=== PATIENT | female | born 1955 | race Caucasian/White ===

== ENCOUNTER 2017-02-13 14:04 | Day surgery (SDC) | payer OTHER ==
[~2017-02-13 14:04] MED LIST: HYDR-3534 PO; LISI-360 PO; NORC7.5T PO; RIVA10 PO; WALKER STANDARD; Z.0.WHEELELR
[2017-02-13 14:31] VITALS: BP 131/83; PULSE 100; RESP 20; TEMP 97.6; O2SAT 100
[2017-02-13] MEDS ORDERED: HYDR-3580 PO (14:41)
--- NOTE | 2017-02-13 15:19 | PD.RAD ---
Radiology Post PICC Prog Note Pre Procedure Diagnosis: (1) Anal cancer Post Procedure Diagnosis: (1) Anal cancer Procedure: Left PICC line placement Procedure Date: Feb 13, 2017 Supervising Radiologist Gregory Hawkins Device Side: Left Armenian: 4 single lumen cm: 41 Catheter: Power PICC Plan of Activity Patient to Unit: ROPU Patient Condition: Good PICC line can be used immediately Gregory Hawkins MD Feb 13, 2017 15:19
[2017-02-13 15:30] VITALS: BP 135/80; PULSE 98; RESP 20; O2SAT 98
[2017-02-13] MEDS ORDERED: SODIUM CHLORIDE 0.9% FLUSH 10 ML FLUSH IVF PRN ×2 (15:30)
--- NOTE | 2017-02-13 15:44 | RADRPT ---
EXAM DATE/TIME: 02/13/2017 15:12 CORRECTION Corrected on: February 17, 2017; [facility] COMPARISON: No previous studies available for comparison. INDICATIONS : Patient is in need of placement of a left sided PICC line for venous access. MEDICAL HISTORY : History of squamous cell anal carcinoma, uterine cancer, ulcerated rectal mass, AVN of left hip, GERD , hypercholesteremia. SURGICAL HISTORY : History of hysterectomy, flex sigmoidoscopy, small bowel biopsy, stomach biopsy, anal verserectum bio psy, right ankle surgery, breast augmentation. ENCOUNTER: Initial ACUITY: 1 month PAIN SCORE: 0/10 FLUORO TIME: minutes IMAGE SERIES: 1 ACCESS: Left basilic vein MEDICATION(S): 1.) 200 units Heparin catheter lock DEVICE(S): 1.) 4 Chinese single lumen 41 cm Xcela Power PICC PROCEDURE : 1. Ultrasound guidance for venous catheterization. 2. Fluoroscopic guidance. 3. Ultrasound & fluoroscopic guided central venous Power PICC line placement. The risks, benefits and alternatives to the procedure were explained and verbal and written consent w as obtained. The site was prepped in sterile fashion. Full sterile technique was used, including ca p, mask, sterile gloves and gown and a large sterile sheet. Hand hygiene and 2% chlorhexidine prep w as utilized per protocol for cutaneous antisepsis with appropriate dry time for site. The skin and s ubcutaneous tissues were infiltrated with local anesthetic solution. Under direct ultrasound guidance, a suitable vein was accessed and a measuring guidewire was introduc ed and positioned in the central venous system. The ultrasound images depicting access guidance were saved and stored to PACS for permanent record. A Power Injectable PICC line was cut to prescribed length and introduced, positioned with tip at the cavoatrial junction level. The line was flushed and secured per protocol. CONCLUSION: 1. Uncomplicated central venous Power PICC line placement. 2. The PICC line can be used immediately. Gregory Hawkins MD on February 13, 2017 at 15:42 Board Certified Radiologist. This report was verified electronically. Gregory Hawkins MD on February 17, 2017 at 16:13 Board Certified Radiologist. This report was verified electronically.
[2017-02-14] MEDS ORDERED: SODIUM CHLORIDE 0.9% FLUSH 10 ML FLUSH IVF SCH (09:00)
== END 2017-02-13 16:04 | disposition home or self-care (01) ==
LOC: HROP 14:04 → HRIP 14:07 → HROP 16:04
PROVIDERS: ATTEND Internal Medicine Hematology & Oncology
DX: Z45.2 Encounter for adjustment and management of vascular access device (principal); C21.0 Malignant neoplasm of anus, unspecified; K21.9 Gastro-esophageal reflux disease without esophagitis; E78.00 Pure hypercholesterolemia, unspecified
CPT/HCPCS: 36569; 76937; 77001; C1751; J1642

== ENCOUNTER 2017-02-17 13:05 | Day surgery (SDC) | payer OTHER ==
[~2017-02-17 13:05] MED LIST changes: -HYDR-3534 PO; +HYDR-3580 PO; -LISI-360 PO; -NORC7.5T PO; -RIVA10 PO; -WALKER STANDARD; -Z.0.WHEELELR
[2017-02-17 13:36] VITALS: BP 159/86; PULSE 88; RESP 20; TEMP 98.3; O2SAT 99
[2017-02-17 15:40] VITALS: BP 161/90; PULSE 87; RESP 20; O2SAT 100
[2017-02-17] MEDS ORDERED: SODIUM CHLORIDE 0.9% FLUSH 10 ML FLUSH IVF PRN ×2 (15:45)
--- NOTE | 2017-02-17 15:46 | PD.RAD ---
Post Procedure Progress Note Pre Procedure Diagnosis: (1) Anal cancer Post Procedure Diagnosis: (1) Anal cancer (2) PICC line damaged Procedure Date: Feb 17, 2017 Supervising Radiologist: Rajendra Aldana Proceduralist/Assist: RT Kaelyn(R)() Anesthesia: Local Plan of Activity Patient to Unit: ROPU Patient Condition: Good See PACS Report for procedural detail/treatment PICC Device Left PICC line replacement (Existing catheter leaking) single lumen Yakut: 4 PICC Line Length (cm): 41 Catheter: Power PICC PICC line can be used immediately Rajendra Aldana MD Feb 17, 2017 15:46
--- NOTE | 2017-02-17 19:46 | RADRPT ---
EXAM DATE/TIME: 02/17/2017 15:26 [facility] COMPARISON: No previous studies available for comparison. INDICATIONS : Patient with a history of rectal cancer. MEDICAL HISTORY : squamous cell anal carcinoma, uterine cancer, ulcerated rectal mass, AVN of left hip, GERD, hypercholesteremia. SURGICAL HISTORY : hysterectomy, flex sigmoidoscopy, small bowel biopsy, stomach biopsy, anal verserectum biopsy, right ankle surgery, breast augmentation. ENCOUNTER: Subsequent ACUITY: 2 months PAIN SCORE: 7/10 LOCATION: Left hip FLUORO TIME: 0.18 minutes IMAGE SERIES: 1 ACCESS: Left basilic vein DEVICE(S): 1.) 4 Czech single lumen 41 cm Power PICC PROCEDURE : 1. Fluoroscopic guidance. 2. Fluoroscopic guided central venous Power PICC line replacement. The risks, benefits and alternatives to the procedure were explained and verbal and written consent w as obtained. The arm was prepped in sterile fashion. Full sterile technique was used, including cap , mask, sterile gloves and gown and a large sterile sheet. Hand hygiene and 2% chlorhexidine prep wa s utilized per protocol for cutaneous antisepsis with appropriate dry time for site. The skin and sarah bcutaneous tissues were infiltrated with local anesthetic solution. Under direct fluoroscopic guidance the previously placed PICC line was removed over a guidewire and a fresh Power Injectable PICC line was cut to prescribed length and positioned with tip at the cavoatr ial junction level. The line was flushed and secured per protocol. CONCLUSION: 1. Uncomplicated central venous Power PICC line replacement. 2. The PICC line can be used immediately. Rajednra Aldana MD on February 17, 2017 at 19:44 Board Certified Radiologist. This report was verified electronically.
[2017-02-18] MEDS ORDERED: SODIUM CHLORIDE 0.9% FLUSH 10 ML FLUSH IVF SCH (09:00)
== END 2017-02-17 15:50 | disposition home or self-care (01) ==
LOC: HROP 13:05 → HRIP 13:06 → HROP 15:50
PROVIDERS: ATTEND Internal Medicine Hematology & Oncology
DX: Z45.2 Encounter for adjustment and management of vascular access device (principal); C21.0 Malignant neoplasm of anus, unspecified; E78.00 Pure hypercholesterolemia, unspecified; K21.9 Gastro-esophageal reflux disease without esophagitis; Z85.42 Personal history of malignant neoplasm of other parts of uterus
CPT/HCPCS: 36584; 77001; C1751; J1642

== ENCOUNTER 2017-04-06 16:00 | Observation (INO) | payer OTHER ==
[~2017-04-06] VITALS: Ht 165.1 cm; Wt 55.0 kg
[2017-04-06 16:02] VITALS: BP 133/75; PULSE 125; RESP 15; TEMP 99.3
[2017-04-06] MEDS ORDERED: NALOXONE HCL 0.4 MG/ML AMP IV PRN (16:30)
[2017-04-06] MEDS ORDERED: ACETAMINOPHEN/HYDROcodone 325 MG/5 MG TAB PO PRN (16:30)
[2017-04-06] MEDS ORDERED: SODIUM CHLORIDE 0.9% FLUSH 10 ML FLUSH IV FLUSH PRN (16:30)
[2017-04-06] MEDS ORDERED: TEMAZEPAM 15 MG CAP PO PRN (16:30)
[2017-04-06] MEDS ORDERED: ONDANSETRON HCL 4 MG/2 ML VIAL IVP PRN (16:30)
[2017-04-06] MEDS ORDERED: MAGNESIUM HYDROXIDE SUSP 30 ML CUP PO PRN (16:30)
--- NOTE | 2017-04-06 16:41 | HHI.HP ---
HPI Service [facility] Hospitalists Primary Care Physician Harris Quintana M.D. Admission Diagnosis Anemia Chief Complaint: Weakness Travel History International Travel<30 Days: No Contact w/Intl Traveler <30 Da: No Traveled to Known Affected Are: No History of Present Illness Mrs. Valadez is a pleasant 61 y/o female with anal cancer diagnosed in 12/2016 undergoing XRT and has had chemo with Dr. Orozco. Pt was sent to the ED by her Oncologist for a significant anemia. Pts labs with Hgb 5.6/Hct 17.5 on 04/06/17. She complains of generalized weakness, fatigue and some exertional SOB. Pt has also had anal pain since starting the XRT and has been using topical lidocaine without much relief. She reports chronic diarrhea alternating with constipation, but denies any obvious rectal bleeding or melena. She is being admitted for blood transfusion and for observation overnight. Review of Systems Constitutional: COMPLAINS OF: Fatigue, Change in appetite, DENIES: Fever, Chills, Dizziness Eyes: DENIES: Vision loss Ears, nose, mouth, throat: DENIES: Hearing loss Respiratory: DENIES: Cough Cardiovascular: COMPLAINS OF: Dyspnea on Exertion, DENIES: Chest pain, Palpitations Gastrointestinal: COMPLAINS OF: Constipation, Diarrhea, See HPI, DENIES: Abdominal pain, Black stools, Bloody stools, BRB per rectum, Nausea Genitourinary: DENIES: Hematuria Integumentary: DENIES: Rash Neurologic: DENIES: Headache Psychiatric: DENIES: Confusion Past Family Social History Past Medical History Anal cancer, SCC, diagnosed in 12/2016, started on XRT and chemo with Mitomycin and 5-FU on 02/16/17. Pt follows with Dr. Orozco and Dr. Estrada GERD Hx of H. pylori gastritis Hyperlipidemia Hx of uterine cancer Past Surgical History EGD/Colonoscopy 01/06/[address] Hooks --> gastritis, esophagitis, duodenitis, and bleeding ulcerated mass at anal verge Right ankle surgery in 2015 Partial hysterectomy in 1996 Bilateral breast augmentation Reported Medications -AZO PRN -Fentanyl patch 2000mcg Q72H, last placed on 04/05/17 -Hydromorphone 2mg (1-2 tablets) Q4H PRN Allergies: Coded Allergies: No Known Allergies (Unverified , 04/06/17) Family History Noncontributory Social History Denies any alcohol, tobacco or illicit drug use Physical Exam Vital Signs Vital Signs Date Time Temp Pulse Resp B/P Pulse Ox O2 Delivery O2 Flow Rate FiO2 04/06/17 16:02 99.3 125 15 133/75 Physical Exam GENERAL: This is a well-nourished, well-developed patient, in no apparent distress. HEENT: Atraumatic. Normocephalic. No temporal or scalp tenderness. Pale conjunctiva. Airway patent. NECK: Trachea midline, supple, nontender. CARDIO: Regular RESP: CTA bilaterally. No wheezes, rales, or rhonchi. ABD: +BS, soft, nondistended. EXT: Extremities without clubbing, cyanosis, or edema. NEURO: Awake and alert. Motor and sensory grossly within normal limits. Normal speech. Septic Shock Reassessment Heart: Regular rate and rhythm Lungs: Clear Skin: Warm Assessment and Plan Problem List: (1) Severe anemia Status: Acute Plan: - Pt is a 61 y/o WF with recently diagnosed SCC of the anus, who was started on XRT and chemo with Mitomycin and 5-FU on 02/16/17. Pt follows with Dr. Orozco and Dr. Estrada - She has not had any noted active bleeding but has had progressive weakness and fatigue. - Pts labs on 04/06/17 noted a significant drop in her H/H to 5.6/17.5, MCV 104.4 - Pt was sent to the hospital for admission and transfusion with PRBCs. - Pt is being directly admitted for observation and transfusion of 2 units PRBCs - Repeat labs in AM to determine if further transfusion is necessary - The case was discussed between Dr. Sigala and Dr. Orozco - Continue home meds - Pain control PRN - Diet as tolerated - Pt received IVF outpt today - Zofran PRN (2) Anal cancer Status: Chronic Plan: - See above. Assessment and Plan Patient examined. Assessment and plan formulated with Iris Mccann PA-C. I agree with the above. Case d/w Dr. Orozco. No availability [facility] for transfusion at this time. Pt admitted for transfusion d/t critically low Hg. Pt c/o increased fatigue. No chest pain but exertional SOB. Iris Mccann Apr 06, 2017 16:41 Ludin Sigala DO Apr 07, 2017 08:35
[2017-04-06] MEDS ORDERED: SODIUM CHLOR 0.9% 250 ML INJ 250 ML IV ONE (16:45)
[2017-04-06] MEDS ORDERED: FUROSEMIDE 20 MG/2 ML VIAL IV ONE (16:45)
[2017-04-06] MEDS ORDERED: HYDROmorphone HCL 2 MG TAB PO PRN (16:45)
[2017-04-06] MEDS ORDERED: PHENAZOPYRIDINE HCL 100 MG TAB PO PRN (17:00)
[2017-04-06] MEDS: ACETAMINOPHEN 325 MG TAB PO PRN (17:37)
[2017-04-06 18:00] VITALS: BP 124/74; PULSE 106; RESP 20; TEMP 100.4
[2017-04-06] MEDS ORDERED: DICYCLOMINE HCL 20 MG TAB PO SCH (18:00)
[2017-04-06] MEDS: HYDROmorphone HCL 4 MG TAB PO PRN (18:15)
[2017-04-06] MEDS ORDERED: LIDO4CRE5 RECTAL (19:13)
[2017-04-06] MEDS ORDERED: AZO-450T (19:13)
[2017-04-06] MEDS ORDERED: HYDR4TAB PO (19:13)
[2017-04-06] MEDS ORDERED: FENT100D T-DERMAL (19:13)
[2017-04-06] MEDS ORDERED: [UNRECOGNIZED DRUG - OTHER] EXTERNAL (19:13)
[2017-04-06 20:00] VITALS: BP 103/59; PULSE 100; RESP 18; TEMP 97.7
[2017-04-06 20:07] VITALS: TEMP 98.4
--- NOTE | 2017-04-06 22:00 | RADRPT ---
EXAM DATE/TIME: 04/06/2017 21:18 [facility] COMPARISON: No previous studies available for comparison. INDICATIONS : Cough. MEDICAL HISTORY : Carcinoma, rectal. SURGICAL HISTORY : None. ENCOUNTER: Initial ACUITY: 1 day PAIN SCORE: 0/10 LOCATION: Bilateral chest FINDINGS: A single view of the chest demonstrates the lungs to be symmetrically aerated without evidence of mas s, infiltrate or effusion. The cardiomediastinal contours are unremarkable. Osseous structures are intact. CONCLUSION: No evidence of acute cardiopulmonary disease. Lavell Dubose MD on April 06, 2017 at 21:58 Board Certified Radiologist. This report was verified electronically.
[2017-04-06] MEDS: SODIUM CHLORIDE 0.9% FLUSH 10 ML FLUSH IV FLUSH SCH (22:23)
[2017-04-06] MEDS ORDERED: diphenhydrAMINE HCL 25 MG CAP PO PRN (23:00)
[2017-04-06] MEDS ORDERED: ACETAMINOPHEN 325 MG TAB PO PRN (23:00)
[2017-04-06 23:40] VITALS: BP 101/61; PULSE 92; RESP 16; TEMP 99; O2SAT 93
[2017-04-06 23:50] VITALS: BP 101/61; PULSE 92; RESP 16; TEMP 99; O2SAT 93
[2017-04-07] VITALS (8 sets, daily range): BP systolic 94–138; BP diastolic 55–90; PULSE 80–96; RESP 16–18; TEMP 96.3–100.2; O2SAT 93–100
[2017-04-07] MEDS ORDERED: FUROSEMIDE 20 MG/2 ML VIAL IV ONE (03:00)
[2017-04-07] MEDS: HYDROmorphone HCL 4 MG TAB PO PRN ×4 (03:20→16:44)
[2017-04-07] MEDS: ACETAMINOPHEN 325 MG TAB PO PRN (08:29)
--- NOTE | 2017-04-07 08:48 | HHI.PR ---
Subjective Remarks No new complaints. Pt denies chest pain or SOB, but has not been ambulating yet this AM. Pt with occasional low grade fever. Pt had episode of low grade fever this AM, associated with transfusion? Pt denies dysuria or cough. Objective Vitals Vital Signs Date Time Temp Pulse Resp B/P Pulse Ox O2 Delivery O2 Flow Rate FiO2 04/07/17 06:35 98.2 89 16 103/59 95 04/07/17 03:55 98.1 88 16 118/71 100 04/07/17 03:32 97.5 90 16 138/81 98 04/07/17 02:41 96.3 84 16 112/70 98 04/07/17 00:11 98.5 89 16 94/55 95 04/06/17 23:50 99.0 92 16 101/61 93 04/06/17 23:40 99.0 92 16 101/61 93 04/06/17 20:07 98.4 04/06/17 20:00 97.7 100 18 103/59 04/06/17 18:00 100.4 106 20 124/74 04/06/17 16:02 99.3 125 15 133/75 Imaging Last Impressions Chest X-Ray 04/06/17 1622 Signed Impressions: Service Date/Time: Thursday, April 06, 2017 21:18 - CONCLUSION: No evidence of acute cardiopulmonary disease. Lavell Dubose MD Objective Remarks GENERAL: This is a well-nourished, well-developed patient, in no apparent distress. CARDIOVASCULAR: Regular rate and rhythm without murmurs, gallops, or rubs. RESPIRATORY: Clear to auscultation. Breath sounds equal bilaterally. No wheezes , rales, or rhonchi. GASTROINTESTINAL: Abdomen soft, non-tender, nondistended. Normal active bowel sounds MUSCULOSKELETAL: Extremities without clubbing, cyanosis, or edema. NEURO: Alert & Oriented x4 to person, place, time, situation. Moves all ext x4 A/P Problem List: (1) Severe anemia Status: Acute Plan: - Pt is a 61 y/o WF with recently diagnosed SCC of the anus, who was started on XRT and chemo with Mitomycin and 5-FU on 02/16/17. Pt follows with Dr. Orozco and Dr. Estrada - She has not had any noted active bleeding but has had progressive weakness and fatigue. - Pts labs on 04/06/17 noted a significant drop in her H/H to 5.6/17.5, MCV 104.4 - Pt was sent to the hospital for admission and transfusion with PRBCs, no availability at [facility] - Pt received transfusion of 2 units PRBCs - await AM labs, pt may require additional transfusion - Continue home meds - Pain control PRN - Zofran PRN (2) Anal cancer Status: Chronic Plan: - See above. (3) Fever, low grade Status: Acute Plan: - possibly d/t transfusion - CXR (04/06/17) --> NO infiltrate - obtain UA/Cx - observe Ludin Sigala DO Apr 07, 2017 08:48
[2017-04-07] MEDS ORDERED: PANTOPRAZOLE SOD 20 MG DELAYED RELEASE TAB PO SCH (09:00)
[2017-04-07] MEDS ORDERED: TAMSULOSIN HCL 0.4 MG CAP PO SCH (09:00)
[2017-04-07] MEDS ORDERED: DEXAMETHASONE 4 MG TAB PO SCH (09:00)
[2017-04-07 09:40] LABS: BICARBONATE 27.6 MEQ/L (21.0-32.0); MAGNESIUM 1.8 MG/DL (1.5-2.5); POTASSIUM 3.3 MEQ/L (3.5-5.1)
[2017-04-07 09:54] LABS: HEMATOCRIT 28.1 % (35.0-46.0); MEAN CELL VOLUME 95.7 FL (80.0-100.0); MEAN CORPUSCULAR HGB CONC 34.5 % (32.0-36.0); PLATELET COUNT 192 TH/MM3 (150-450); RED BLOOD COUNT 2.94 MIL/MM3 (4.00-5.30); RED CELL DISTRIBUTION WIDTH 22.8 % (11.6-17.2); WHITE BLOOD COUNT 3.4 TH/MM3 (4.0-11.0)
[2017-04-07 09:59] LABS: HEMO FLAGS AUTO DIFF
[2017-04-07 10:46] LABS: BANDS 13 % (0-6); EOSINOPHILS 4 % (0-4); NEUTROPHIL # MANUAL DIFF 2.1 TH/MM3 (1.8-7.7); POLYS (SEG NEUTROPHILS) 50 % (16-70); WBC DIFF SAMPLE 100
[2017-04-07 10:47] LABS: OVALOCYTES 1+ (NORMAL)
[2017-04-07 10:48] LABS: SCAN/DIFF FINAL DIFF MANUAL
[2017-04-07] MEDS: SODIUM CHLORIDE 0.9% FLUSH 10 ML FLUSH IV FLUSH SCH (12:32)
[2017-04-07 15:04] LABS: BLOOD, URINE NEG (NEG); GLUCOSE,URINE NEG (NEG); KETONE, URINE NEG (NEG); MUCUS URINE FEW /lpf (OCC); NITRITE,URINE NEG (NEG); URINE COLOR YELLOW (YELLW/STRAW)
[2017-04-07 15:05] LABS: COMMENT (UR) CULT NOT INDICATED; CULTURE IF INDICATED CULT NOT INDICATED
[2017-04-07 16:54] LABS: BASOPHIL % 0.4 % (0.0-2.0); EOSINOPHIL # 0.2 TH/MM3 (0-0.4); EOSINOPHIL % 5.5 % (0.0-4.0); HEMATOCRIT 29.7 % (35.0-46.0); HEMO FLAGS DIFF FINAL; LYMPH % 18.1 % (9.0-44.0); LYMPHOCYTE # 0.6 TH/MM3 (1.0-4.8); MEAN CELL VOLUME 95.9 FL (80.0-100.0); MEAN CORPUSCULAR HEMOGLOBIN 31.9 PG (27.0-34.0); MEAN CORPUSCULAR HGB CONC 33.2 % (32.0-36.0); MONO % 19.2 % (0.0-8.0); NEUT % 56.8 % (16.0-70.0); PLATELET COUNT 202 TH/MM3 (150-450); RED BLOOD COUNT 3.09 MIL/MM3 (4.00-5.30); RED CELL DISTRIBUTION WIDTH 22.9 % (11.6-17.2); WHITE BLOOD COUNT 3.5 TH/MM3 (4.0-11.0)
[2017-04-07] MEDS ORDERED: POTASSIUM CHLORIDE 20 MEQ CONTROLLED RELEASE TAB PO ONE (18:15)
--- NOTE | 2017-04-07 21:53 | EKG ---
Date Performed: 04/06/2017 Time Performed: 21:32:52 PTAGE: 61 years EKG: SINUS TACHYCARDIA Since previous tracing, no significant change noted ABNORMAL RHYTHM ECG PREVIOUS TRACING : 02/16/2017 11.47 DOCTOR: Pierre Buckner Interpretating Date/Time 04/07/2017 21:51:24
[2017-04-08] MEDS ORDERED: fentaNYL 100 MCG/HR PATCH T-DERMAL SCH (17:00)
[2017-04-11] MEDS ORDERED: REMOVE OLD PATCH T-DERMAL SCH ×2 (17:00)
== END 2017-04-07 18:29 | disposition home or self-care (01) ==
LOC: NED 16:00 → HOCA 16:40
PROVIDERS: ADMIT Hospitalist; ATTEND Hospitalist
DX: D64.9 Anemia, unspecified (principal); C21.0 Malignant neoplasm of anus, unspecified; R50.9 Fever, unspecified; K21.9 Gastro-esophageal reflux disease without esophagitis; E78.5 Hyperlipidemia, unspecified; Z85.42 Personal history of malignant neoplasm of other parts of uterus; Z86.19 Personal history of other infectious and parasitic diseases
CPT/HCPCS: 36430; 71010; 80048; 81001; 83735; 85007; 85025; 85027; 86850; 86900; 86901; 86920; 93005; 97162; 99283; G8987; G8988; J1940; P9016; G0378

== ENCOUNTER 2017-06-02 09:02 | Inpatient (IN) | payer OTHER ==
[~2017-06-02] VITALS: Ht 165.1 cm; Wt 59.9 kg
[2017-06-03] MEDS ORDERED: HYDR4TAB PO (09:47)
--- NOTE | 2017-06-03 18:54 | MH ---
cc: JEREMIE HAMEED DATE OF ADMISSION 06/04/2017 ADMISSION DIAGNOSIS Avascular necrosis of the left hip. HISTORY This patient is a 61-year-old female who has about a 2-3 year history of some pain in the region of her left hip. She was treated with several injections that started over a year ago. Initially she did well but had increasing severe pain. Studies showed collapse of the femoral head, likely consistent with a variant of avascular necrosis or collapse related to dysplasia. Her case is complicated because she developed rectal carcinoma that has been treated with chemotherapy and radiation therapy. She has had to delay surgical treatment of her hip because of that. The patient now is almost wheelchair-bound and getting around somewhat with a walker but is severely painful of the left hip. She now presents for surgical treatment. PAST MEDICAL HISTORY, SOCIAL HISTORY AND FAMILY HISTORY Some see attached notes. REVIEW OF SYSTEMS See attached notes. PHYSICAL EXAMINATION GENERAL: Slender built female. She is in severe distress with her left hip. HEENT: Normocephalic, atraumatic. Pupils equal, round, reactive to light and accommodation. Extraocular motions intact. NECK: Supple. CHEST: Clear. HEART: Regular rate and rhythm. ABDOMEN: Soft, nontender. Normoactive bowel sounds. MUSCULOSKELETAL: Left hip severe pain with range of motion, 1 inch shortening left hip compared to the right. Pain with internal and external rotation. She almost cannot move because it is so painful. NEUROLOGIC: Examination within normal limits. VASCULAR: Examination within normal limits. IMPRESSION Osteoarthritis of the left hip versus avascular necrosis. PLAN Left total hip replacement arthroplasty, direct anterior exposure. CONSENT The risks of surgery including infection, bleeding, loss of motion, continued pain, need for further surgery, neurologic vascular injury. The patient understands these issues and wishes to press on with surgery as outlined above. MD LIBRA Ny/YANIV /6:28 PM /6:38 PM
[2017-06-04] MEDS ORDERED: TRANEXAMIC ACID IV SCH (11:00)
[2017-06-04] MEDS ORDERED: VANCOMYCIN 1000 MG/NS 250 ML (for <70 kg) IV SCH ×2 (11:00)
[2017-06-04] MEDS ORDERED: SODIUM CHLORID 0.9% 500 ML IV PRN (11:00)
[2017-06-04] MEDS ORDERED: METOPROLOL TARTRATE 25 MG TAB PO PRN (11:00)
[2017-06-04] MEDS ORDERED: EXPAREL PERI-ARTICULAR INJECTION (TOTAL VOL. 60 ML) P-ARTICULR SCH ×2 (11:00)
[2017-06-04] MEDS ORDERED: INSULIN HUMAN REGULAR 1,000 UNITS/10 ML VIAL SQ PRN (11:00)
[2017-06-04] MEDS ORDERED: POVIDONE IODINE 7.5% SCRUB 118 ML BOTTLE TOPICAL SCH (11:00)
[2017-06-04] MEDS ORDERED: POVIDONE IODINE 5% (ANTISEPSIS KIT) 4 APPLICATIONS EACH NARE PRN (11:00)
[2017-06-04] MEDS ORDERED: SODIUM CHLORIDE 0.9% IV SCH (11:00)
[2017-06-04] MEDS ORDERED: ceFAZolin 2 GM PREMIX 50 ML IV SCH (11:00)
[2017-06-04] MEDS ORDERED: CHLORHEXIDINE GLUCONATE 2 % 1 PACK (2 CLOTHS) TOPICAL PRN (11:00)
[2017-06-04] MEDS ORDERED: LACTATED RINGER'S 1000 ML IV PRN (11:00)
[2017-06-04 11:08] VITALS: BP 95/61; PULSE 73; RESP 16; TEMP 98.8; O2SAT 100
[2017-06-04] MEDS ORDERED: ONDANSETRON HCL 4 MG/2 ML VIAL IV PUSH ONE (12:00)
[2017-06-04] MEDS ORDERED: NEOSTIGMINE 3 MG/3 ML SYR IV ONE (12:00)
[2017-06-04] MEDS ORDERED: ePHEDrine/NS 25 MG/5 ML SYR IV ONE (12:00)
[2017-06-04] MEDS ORDERED: LACTATED RINGER'S 1000 ML INJ 2,000 ML IV ONE (12:00)
[2017-06-04] MEDS ORDERED: PHENYLEPH/NS 1000 MCG/10 ML SYR IV ONE (12:00)
[2017-06-04] MEDS ORDERED: PROPOFOL 200 MG/20 ML AMP IV ONE (12:00)
[2017-06-04] MEDS ORDERED: ACETAMINOPHEN 1000 MG/100 ML VIAL IV ONE (12:15)
[2017-06-04] MEDS ORDERED: fentaNYL CITRATE 250 MCG/5 ML AMP ONE ×3 (12:15→15:55)
[2017-06-04] MEDS ORDERED: GENTAMICIN SULFATE 80 MG/2 ML VIAL ONE (12:55)
[2017-06-04] MEDS ORDERED: DEXAMETHASONE SOD PHOS 4 MG/ML VIAL ONE (13:24)
[2017-06-04] MEDS ORDERED: MIDAZOLAM HCL 2 MG/2 ML VIAL ONE (13:24)
[2017-06-04] MEDS ORDERED: FAMOTIDINE 20 MG/2 ML VIAL ONE (13:43)
[2017-06-04] MEDS ORDERED: HYDROmorphone HCL PF 2 MG/ML VIAL ONE ×2 (14:28→15:56)
[2017-06-04] MEDS ORDERED: MISCELLANEOUS PHARMACY INFORMATION XX ONE (16:45)
[2017-06-04] MEDS ORDERED: MORPHINE SULFATE 30 MG/30 ML PCA IV SCH (16:45)
[2017-06-04] MEDS ORDERED: MISCELLANEOUS NURSING INFORMATION XX PRN (16:45)
[2017-06-04] MEDS ORDERED: SODIUM CHLORIDE 0.9% FLUSH 5 ML FLUSH IVF PRN (16:45)
[2017-06-04] MEDS ORDERED: NALOXONE HCL 0.4 MG/ML AMP IV PRN ×2 (16:45→17:45)
[2017-06-04] MEDS ORDERED: HYDROmorphone HCL PF 2 MG/ML VIAL IV PRN (16:45)
[2017-06-04] MEDS ORDERED: Post-op Orders (for Pharmacy) MISC XX ONE (16:45)
--- NOTE | 2017-06-04 16:45 | RADRPT ---
EXAM DATE/TIME: 06/04/2017 14:16 [facility] COMPARISON: No previous studies available for comparison. INDICATIONS : Hardware placement left hip MEDICAL HISTORY : Arthritis. SURGICAL HISTORY : None. ENCOUNTER: Initial ACUITY: 1 day PAIN SCORE: Non-responsive. LOCATION: Left Hip FINDINGS: 2 spot fluoroscopic images obtained in the upper nerve during a procedure documents left total hip ar throplasty hardware in place that is noncemented. There is a single acetabular screw visualize. No un expected findings are visualized. CONCLUSION: Spot fluoroscopic images obtained during left total hip arthroplasty. Lavell Beltran MD on June 04, 2017 at 16:43 Board Certified Radiologist. This report was verified electronically.
--- NOTE | 2017-06-04 16:57 | PD.OP ---
cc: Huseyin Olmedo MD Operative Report Date of Surgery: Jun 04, 2017 Preoperative Diagnosis: Avascular necrosis left hip. Lateral subluxation, left hip, severe/acetabular dysplasia Postoperative Diagnosis: Same Procedure: Left total hip replacement arthroplasty, direct anterior exposure Anesthesia: Gen. Surgeon: Huseyin Olmedo Finance Effectiveness Manager(s): ANGELIA Good Operation and Findings: EBL: 300 cc INDICATION: This patient presents with significant hip pain related to severe avascular necrosis with collapse versus aggressive inflammatory arthritis with lateral subluxation related to femoral head collapse.. Despite extensive conservative care this patient continues to be painful and now presents for surgical treatment. NOTE: Tonya Good PA-C was present for the entire surgical procedure as my multimedia assistant. In my medical opinion her skill and care was necessary for the proper management of this patient. COMPONENTS: COMPANY: [employer] CUP: [place], 48 mm, sector, gription surface LINER: Altrx 32, neutral STEM: [place], size 12, high offset, hydroxyapatite-coated HEAD: 32 mm, +1, ceramic, 12/14 taper PROCEDURE: This patient was brought to the operating room and anesthetized in the supine position and positioned on the fracture table with both legs held extended. The left hip and leg was scrubbed with alcohol followed by Hibiclens followed by ChloraPrep and draped sterilely. Antibiotics were given within routine time window and a timeout was done. A 4 inch incision was made starting 2 cm distal and 2 cm lateral to the anterior superior iliac spine. The fascia jocelyne was opened longitudinally. The interval between the fascia jocelyne and the rectus was opened down to the capsule of the hip joint. Retractors were positioned allowing good visualization of the capsule. This was opened longitudinally and flaps were created. Stay sutures were utilized. Exposure was excellent. The neck was cut at the proper location using fluoroscopy as a guide. The head was removed. There was evidence of severe collapse of the femoral head. There was some fatigue of the cephalad border of the acetabulum. This was resected. Large anterior osteophytes were noted. Deep retractors were positioned allowing good visualization of the acetabulum. Acetabulum was deepened down to the floor starting with a proper size reamer and reaming up to 47 mm. A trial was utilized. Fluoroscopy was used to check position and confirmed satisfactory alignment. The rim was reamed with a 48 mm reamer and the final cup was positioned in approximately 20 of anteversion and 40-45 of abduction. Position was satisfactory. A single cephalad screw was placed for additional fixation. A single hole eliminator was positioned followed by the final liner. The lifting hook was utilized. The leg was dropped to the floor, maximally externally rotated and brought across the midline. Retractors were positioned. A box osteotome was utilized followed by progressive broaching to the proper stem size. Trial reduction showed excellent alignment and fit. With 60 of external rotation the leg was dropped to the floor without evidence of anterior subluxation. The wound was irrigated. The final stem was inserted and was found to be very stable. The final reduction using the final head. Stability was as previously noted. Intraoperative x-rays were taken. The wound was irrigated copiously. Hemostasis was controlled. Local anesthesia was utilized. The capsule was repaired with #2 Tycron sutures. The fascia jocelyne was repaired with running 0 PDS on a loop. Subcutaneous tissue was approximated with 2-0 Vicryl and skin with running intradermal 3-0 Vicryl followed by Steri-Strips. A sterile dressing was applied. The patient was awakened and taken to the recovery room in satisfactory condition. FINDINGS: There was significant loss of length of this leg by almost 3/4 of an inch because of the lateral subluxation, cephalad migration collapse of the femoral head. The final solution had a high hip center acetabular component without the need of using bone grafting. As result, we placed the stem fairly high. During surgery we carefully checked against intraoperative x-rays of the normal right hip as well as intraoperative x-rays of the left hip to ensure that we brought the leg down to the proper location. We appeared to have lengthened this by approximately 12 mm. Huseyin Olmedo MD Jun 04, 2017 16:57
[2017-06-04] MEDS ORDERED: XARE10TA PO (16:59)
[2017-06-04] MEDS ORDERED: DILA4TAB2 PO (16:59)
[2017-06-04] MEDS: LACTATED RINGER'S 1000 ML INJ 1,000 ML IV SCH (17:08)
[2017-06-04] MEDS ORDERED: HYDROmorphone HCL PCA 6 MG/30 ML IV ONE (17:19)
[2017-06-04] MEDS: HYDROmorphone HCL PCA 6 MG/30 ML IV SCH ×2 (17:43→20:07)
[2017-06-04] MEDS ORDERED: *HYDROmorphone PF 1 MG VIAL PERIprocedural Use ONLY ONE (17:46)
[2017-06-04] MEDS ORDERED: *morphine SULFATE 8 MG/ML PERIprocedure ONLY ONE (18:01)
[2017-06-04] MEDS ORDERED: MORPHINE SULFATE 8 MG/ML INJ ONE (18:13)
[2017-06-04 19:00] VITALS: BP 134/84; PULSE 75; RESP 17; TEMP 95.9; O2SAT 100
[2017-06-04] MEDS ORDERED: DO NOT ADM ANY ANTICOAGULANT DRUGS PRN (19:45)
[2017-06-04] MEDS: SENNOSIDES 8.6 MG TAB PO SCH (20:11)
[2017-06-04] MEDS: MAGNESIUM HYDROXIDE SUSP 30 ML CUP PO SCH (20:18)
[2017-06-04] MEDS ORDERED: KETOROLAC TROMETHAMINE 30 MG/ML (IVP) VIAL IV PUSH ONE (20:30)
[2017-06-04] MEDS ORDERED: CARISOPRODOL 350 MG TAB PO PRN (20:30)
[2017-06-04] MEDS: SODIUM CHLORIDE 0.9% FLUSH 5 ML FLUSH IVF SCH (20:36)
[2017-06-04] MEDS ORDERED: PCA - TOTAL MG MORPHINE DELIVERED PER SHIFT SCH (22:00)
[2017-06-04] MEDS: PCA - TOTAL MG DILAUDID DELIVERED PER SHIFT SCH (22:00)
[2017-06-05] VITALS (12 sets, daily range): BP systolic 88–116; BP diastolic 51–70; PULSE 75–94; RESP 16–18; TEMP 96.2–98.5; O2SAT 98–100
[2017-06-05] MEDS: KETOROLAC TROMETHAMINE 30 MG/ML (IVP) VIAL IV PUSH SCH ×4 (01:53→20:33)
[2017-06-05] MEDS: HYDROmorphone HCL PCA 6 MG/30 ML IV SCH (02:58)
[2017-06-05] MEDS: PCA - TOTAL MG DILAUDID DELIVERED PER SHIFT SCH (06:00)
[2017-06-05] MEDS: LACTATED RINGER'S 1000 ML INJ 1,000 ML IV SCH ×2 (06:25→18:17)
[2017-06-05] MEDS ORDERED: WALKER WHEELS/F1 MIS (07:58)
[2017-06-05] MEDS ORDERED: COMMODE 3-IN-11 MIS (07:59)
--- NOTE | 2017-06-05 08:00 | PD.ORT.PN ---
Subjective Post Op Day #: 1 Subjective Remarks Had very significant pain last night, but now under control. Was on significant pain medication prior to surgery due to cancer treatment. Was on 8 mg of Dilaudid every 4 hours. Presently taking Dilaudid 4-8 mg every 3 hours. 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 Also on Toradol. Stable, postop day 1 Objective Vitals Vital Signs Date Time Temp Pulse Resp B/P Pulse Ox O2 Delivery O2 Flow Rate FiO2 06/05/17 06:00 18 06/05/17 04:00 97.3 86 16 98/64 100 06/05/17 02:58 16 06/05/17 02:53 16 06/05/17 00:00 96.9 82 16 97/61 100 06/04/17 22:00 18 06/04/17 21:51 2.00 06/04/17 20:07 18 06/04/17 19:00 95.9 75 17 134/84 100 06/04/17 18:15 68 18 151/80 100 Nasal Cannula 2 06/04/17 18:00 63 18 136/69 100 Nasal Cannula 2 06/04/17 17:45 62 18 150/72 100 Nasal Cannula 2 06/04/17 17:43 18 06/04/17 17:38 18 06/04/17 17:30 94 18 137/67 99 Nasal Cannula 2 06/04/17 17:15 101 18 136/74 98 Nasal Cannula 2 06/04/17 17:02 97.3 111 18 160/79 100 Nasal Cannula 2 06/04/17 11:08 98.8 73 16 95/61 100 I/O 06/04/17 06/04/17 06/04/17 06/05/17 06/05/17 06/05/17 07:00 15:00 23:00 07:00 15:00 23:00 Intake Total 891 ml 480 ml Output Total 700 ml 250 ml Balance 191 ml 230 ml Intake Oral 480 ml 480 ml IV Total 411 ml Output Urine Total 700 ml 250 ml # Bowel Movements 0 0 Objective Remarks X-ray looks fine. Incision dry. Not much pain with range of motion. Leg lengths equal. No significant swelling. No calf tenderness. Negative Homans sign Assessment & Plan Ortho Post Op Day #: 1 Problem List: Assessment and Plan Avascular necrosis left hip. Acetabular dysplasia with lateral subluxation. Left TAY, direct anterior: POD #1. PLAN: Dilaudid 4-8 mg every 3 hours as needed because of current pain and preoperative need for medication due to cancer treatment. Ambien as needed for sleep. Continue Toradol while in hospital. Discharge to [place] rehabilitation versus home with home healthcare. It will be arranged either way. Dr. Vargas is helping to coordinate as she is her PCP and will help to coordinate possible transfer to rehabilitation Weightbearing as tolerated No dressing change Forms have been filled out Huseyin Olmedo MD Jun 05, 2017 08:00
--- NOTE | 2017-06-05 08:01 | HHI.DCPOC ---
Discharge Care Plan Diagnosis: (1) Osteoarthritis of left hip (2) Avascular necrosis of bone of left hip Your Health Problems Are: Incision/Drains Inflammation Chronic Pain Goals to Promote Your Health * To prevent worsening of your condition and complications * To maintain your health at the optimal level Directions to Meet Your Goals Take your medications as prescribed Follow your dietary instruction Follow activity as directed Keep your appointments as scheduled Take your immunizations and boosters as scheduled If your symptoms worsen call your PCP, if no PCP go to Urgent Care Center or Emergency Room Smoking is Dangerous to Your Health. Avoid second hand smoke Call the 24-hour hour crisis hotline for domestic abuse at Chayito Chung Jun 05, 2017 08:01
--- NOTE | 2017-06-05 08:01 | HHI.FF ---
Face to Face Verification Diagnosis: (1) Osteoarthritis of left hip (2) Avascular necrosis of bone of left hip (3) Chronic pain disorder Physical Therapy Gait training, Safety evaluation, Transfer training, bed to chair Hip: Total hip, Protocol: Left, Progress to weight bearing Left LE Weight Bearing: WB as tolerated Additional Instructions PT 4 days/wk for 2 weeks. WBAT LLE. Anterior TAY precautions. Gait training. Nursing RN Days per Week: 3 x Week(s): 1 Dressing Changes: Do not change dressing Additional Instructions Dressing assessment - do not change unless saturated or erythema. Vitals assessment I have seen patient Kimberly Valadez on 06/05/17. My clinical findings support the need for the requested home health care services because: Limited ability to care for self High risk of falls I certify that my clinical findings support that this patient is homebound because: Post-op weakness Unsteady gait/balance Chayito Chung Jun 05, 2017 08:01
[2017-06-05] MEDS ORDERED: CARI350T25 PO (08:07)
--- NOTE | 2017-06-05 08:07 | HHI.DS ---
Discharge Summary Admission Date Jun 04, 2017 at 10:18 Discharge Date: Jun 06, 2017 Admitting Diagnosis see below Diagnosis: (1) Chronic pain disorder Diagnosis: Secondary (2) Osteoarthritis of left hip Diagnosis: Principal (3) Avascular necrosis of bone of left hip Diagnosis: Principal Procedures Left total hip arthroplasty, direct anterior Brief History This is a 61 year old female patient with a 2 year history of left hip pain. She initially sought out medical treatment and imaging studies were performed. Xrays showed mild to borderline arthritis of the left hip. Conservative measures were pursued but within a year her pain began to increase rapidly. She began to limp and require gait aids. She was taking pain medications for radiation related pain. Imaging studies were repeated and she was found to have severe collapse of the femoral head with avn and osteoarthritis. Surgical treatment was recommended in the form of left total hip arthroplasty and she eagerly agreed to move forward. She presents now for the above. PE at Discharge X-ray looks fine. Incision dry. Not much pain with range of motion. Leg lengths equal. No significant swelling. No calf tenderness. Negative Homans sign Hospital Course Surgical treatment was performed on the day of admission without complication. She recovered well in PACU but her pain was poorly controlled due to her history of use of dilaudid. She was transferred to the orthopaedic floor. She was placed on an every 3 hour dose of dilaudid in addition to toradol and soma. DVT prophylaxis was initiated with xarelto. She was compliant with physical therapy and all precautions. After..2... days she was found to be stable and discharged to rehab with instruction to continue her therapy. She was also encouraged to continue a high fiber diet for 3-5 days. Pt Condition on Discharge: Stable Discharge Disposition: Discharge to SNF Discharge Instructions Diet Instructions: As Tolerated, No Restrictions, High Fiber Diet Activities You Can Perform: Weight Bearing as Olaf Activities to Avoid: Strenuous Activity Additional Activity Instruc.: Left TAY, anterior precautions New Medications: Commode 3-in-1 (Commode 3-in-1) 1 Mis Mis 1 EA .ROUTE DIRECTED #1 Ref 0 EA Walker with Front Wheels (Walker with Front Wheels) 1 Mis Mis 1 EA .ROUTE DIRECTED #1 Ref 0 EA Hydromorphone (Dilaudid) 4 Mg Tab 4 MG PO Q3H PRN pain 1-5 #50 TAB Rivaroxaban (Xarelto) 10 Mg Tab 10 MG PO Q24H Prevent Blood Clot #25 TAB Continued Medications: Hydromorphone (Hydromorphone) 4 Mg Tab 1-2 MG PO Q4H PRN PAIN Ref 0 TAB Chayito Chung Jun 05, 2017 08:07
[2017-06-05] MEDS: MAGNESIUM HYDROXIDE SUSP 30 ML CUP PO SCH ×2 (09:31→21:00)
[2017-06-05] MEDS: SODIUM CHLORIDE 0.9% FLUSH 5 ML FLUSH IVF SCH ×2 (09:31→21:00)
[2017-06-05] MEDS: HYDROmorphone HCL 4 MG TAB PO PRN ×4 (09:35→20:33)
[2017-06-05 09:55] LABS: REVIEW FLAG FINAL
[2017-06-05 09:59] LABS: HEMATOCRIT 20.2 % (35.0-46.0)
[2017-06-05] MEDS ORDERED: PNEUMOCOCCAL POLYVALENT INJ 25 MCG/0.5 ML SYR IM ONE (10:00)
[2017-06-05] MEDS: RIVAROXABAN 10 MG TAB PO SCH (17:17)
[2017-06-05] MEDS: ZOLPIDEM TARTRATE 5 MG TAB PO PRN (20:32)
[2017-06-05] MEDS: SENNOSIDES 8.6 MG TAB PO SCH (20:33)
[2017-06-06] VITALS: BP 106/65; PULSE 93; RESP 16; TEMP 98.4; O2SAT 100
[2017-06-06] MEDS: HYDROmorphone HCL 4 MG TAB PO PRN ×5 (00:28→19:31)
[2017-06-06] MEDS: KETOROLAC TROMETHAMINE 30 MG/ML (IVP) VIAL IV PUSH SCH ×4 (00:28→20:40)
[2017-06-06 04:00] VITALS: BP 97/56; PULSE 86; RESP 16; TEMP 97.5; O2SAT 98
[2017-06-06 06:19] LABS: HEMATOCRIT 21.4 % (35.0-46.0); REVIEW FLAG FINAL
--- NOTE | 2017-06-06 07:16 | PD.ORT.PN ---
Subjective Subjective Remarks pt doing well, states she got out of bed yesterday with no issues denies any SOB, chest pain, lightheadness soreness involving hip Objective Vitals Vital Signs Date Time Temp Pulse Resp B/P Pulse Ox O2 Delivery O2 Flow Rate FiO2 06/06/17 04:00 97.5 86 16 97/56 98 06/06/17 00:00 98.4 93 16 106/65 100 06/05/17 19:00 98.5 94 18 116/70 100 06/05/17 17:00 96.6 75 16 107/65 100 06/05/17 15:45 96.6 75 16 107/65 100 06/05/17 14:20 98 06/05/17 12:22 96.2 82 16 94/60 100 06/05/17 12:15 96.2 82 16 94/60 06/05/17 12:00 97.5 84 16 98/51 100 06/05/17 11:15 97.5 84 16 98/51 100 06/05/17 08:35 86 103/63 06/05/17 08:00 97.5 76 16 88/57 99 I/O 06/05/17 06/05/17 06/05/17 06/06/17 06/06/17 06/06/17 07:00 15:00 23:00 07:00 15:00 23:00 Intake Total 480 ml 480 ml 240 ml 480 ml Output Total 250 ml Balance 230 ml 480 ml 240 ml 480 ml Intake Oral 480 ml 480 ml 240 ml 480 ml Output Urine Total 250 ml # Voids 2 3 2 # Bowel Movements 0 0 0 0 Result Diagram: 06/06/17 0547 Procedures Left total hip arthroplasty, direct anterior Objective Remarks seen by Dr. Foster Olmedo left hip dressing dry and intact Leg lengths equal. No significant swelling No calf tenderness Negative Homans sign Assessment & Plan Problem List: (1) Chronic pain disorder (2) Osteoarthritis of left hip (3) Avascular necrosis of bone of left hip Assessment and Plan Avascular necrosis left hip. Acetabular dysplasia with lateral subluxation. Left TAY, direct anterior: POD #2 PLAN: Dilaudid 4-8 mg every 3 hours as needed because of current pain and preoperative need for medication due to cancer treatment. Ambien as needed for sleep. Continue Toradol while in hospital. Discharge to [place] [facility] Thursday. Patient asymptomatic with her surgical blood loss anemia. As long as blood pressure stable, will treat with iron Weightbearing as tolerated No dressing change Forms have been filled out Maryanne Galicia Jun 06, 2017 07:16
[2017-06-06 08:00] VITALS: BP 100/72; PULSE 113; RESP 18; TEMP 98.8; O2SAT 100
[2017-06-06] MEDS: FERROUS SULFATE 325 MG (65 MG ELEMENTAL IRON) TAB PO SCH ×2 (09:56→20:42)
[2017-06-06] MEDS: SODIUM CHLORIDE 0.9% FLUSH 5 ML FLUSH IVF SCH ×2 (09:57→20:41)
[2017-06-06] MEDS: MAGNESIUM HYDROXIDE SUSP 30 ML CUP PO SCH ×2 (10:11→20:42)
[2017-06-06 12:00] VITALS: BP 94/52; PULSE 91; RESP 18; TEMP 97.4; O2SAT 99
[2017-06-06 16:00] VITALS: BP 101/58; PULSE 102; RESP 18; TEMP 99.1; O2SAT 97
[2017-06-06] MEDS: RIVAROXABAN 10 MG TAB PO SCH (16:17)
[2017-06-06 19:21] VITALS: BP 93/54; PULSE 100; RESP 18; TEMP 98.1; O2SAT 97
[2017-06-06] MEDS: LACTATED RINGER'S 1000 ML INJ 1,000 ML IV SCH (20:00)
[2017-06-06] MEDS: SENNOSIDES 8.6 MG TAB PO SCH (20:42)
[2017-06-06] MEDS: ZOLPIDEM TARTRATE 5 MG TAB PO PRN (21:28)
[2017-06-07 00:13] VITALS: BP 95/53; PULSE 98; RESP 17; TEMP 97.7; O2SAT 97
[2017-06-07 02:00] VITALS: BP 105/58; PULSE 86; RESP 18; O2SAT 98
[2017-06-07] MEDS: KETOROLAC TROMETHAMINE 30 MG/ML (IVP) VIAL IV PUSH SCH ×3 (02:03→15:09)
[2017-06-07] MEDS: HYDROmorphone HCL 4 MG TAB PO PRN ×3 (02:07→15:09)
[2017-06-07 07:22] VITALS: BP 90/52; PULSE 87; RESP 16; TEMP 98.1; O2SAT 96
--- NOTE | 2017-06-07 08:06 | PD.ORT.PN ---
Subjective Subjective Remarks pt still doing well, states she got out of bed yesterday with no issues denies any SOB, chest pain, lightheadness soreness involving hip Objective Vitals Vital Signs Date Time Temp Pulse Resp B/P Pulse Ox O2 Delivery O2 Flow Rate FiO2 06/07/17 02:00 86 18 105/58 98 06/07/17 00:13 97.7 98 17 95/53 97 06/06/17 19:21 98.1 100 18 93/54 97 06/06/17 16:00 99.1 102 18 101/58 97 06/06/17 12:00 97.4 91 18 94/52 99 I/O 06/06/17 06/06/17 06/06/17 06/07/17 06/07/17 06/07/17 07:00 15:00 23:00 07:00 15:00 23:00 Intake Total 480 ml 600 ml 360 ml 240 ml Output Total 5 ml Balance 480 ml 600 ml 355 ml 240 ml Intake Oral 480 ml 600 ml 360 ml 240 ml Output Urine Total 5 ml # Voids 2 4 5 1 # Bowel Movements 0 4 0 Result Diagram: 06/06/17 0547 Procedures Left total hip arthroplasty, direct anterior Objective Remarks seen by Dr. Foster Olmedo left hip dressing dry and intact Leg lengths equal. No significant swelling No calf tenderness Negative Homans sign Assessment & Plan Problem List: (1) Chronic pain disorder (2) Osteoarthritis of left hip (3) Avascular necrosis of bone of left hip Assessment and Plan Avascular necrosis left hip. Acetabular dysplasia with lateral subluxation. Left TAY, direct anterior: POD #3 PLAN: Dilaudid 4-8 mg every 3 hours as needed because of current pain and preoperative need for medication due to cancer treatment. Ambien as needed for sleep. Continue Toradol while in hospital. pending h&h from this AM, if stable, discharge to [place] [facility] today. Possibly need transfusion if hgb too low. Weightbearing as tolerated No dressing change Forms have been filled out Maryanne Galicia Jun 07, 2017 08:06
[2017-06-07] MEDS: LACTATED RINGER'S 1000 ML INJ 1,000 ML IV SCH (08:30)
[2017-06-07 08:42] LABS: HEMATOCRIT 22.1 % (35.0-46.0); MEAN CELL VOLUME 94.6 FL (80.0-100.0); MEAN CORPUSCULAR HEMOGLOBIN 31.9 PG (27.0-34.0); MEAN CORPUSCULAR HGB CONC 33.7 % (32.0-36.0); PLATELET COUNT 195 TH/MM3 (150-450); RED BLOOD COUNT 2.33 MIL/MM3 (4.00-5.30); RED CELL DISTRIBUTION WIDTH 14.4 % (11.6-17.2); REVIEW FLAG FINAL; WHITE BLOOD COUNT 4.6 TH/MM3 (4.0-11.0)
[2017-06-07] MEDS: MAGNESIUM HYDROXIDE SUSP 30 ML CUP PO SCH (09:00)
[2017-06-07] MEDS: SODIUM CHLORIDE 0.9% FLUSH 5 ML FLUSH IVF SCH (09:54)
[2017-06-07] MEDS: FERROUS SULFATE 325 MG (65 MG ELEMENTAL IRON) TAB PO SCH (09:54)
[2017-06-07 11:03] VITALS: BP 90/55; PULSE 94; RESP 16; TEMP 98.6; O2SAT 97
[2017-06-07 15:05] VITALS: BP 98/56; PULSE 84; RESP 16; TEMP 97.5; O2SAT 98
[2017-06-07] MEDS: RIVAROXABAN 10 MG TAB PO SCH (15:08)
[2017-06-07] MEDS ORDERED: FERR325T8 PO (15:40)
== END 2017-06-07 17:52 | DRG 470 ==
LOC: HSDI 06-04 10:18 → N06B 06-04 18:24
PROVIDERS: ADMIT Orthopaedic Surgery Orthopaedic Surgery of the Spine; ATTEND Orthopaedic Surgery Orthopaedic Surgery of the Spine
PROC: 0SRB04Z Replacement of Left Hip Joint with Ceramic on Polyethylene Synthetic Substitute, Open Approach (ICD-10-PCS; principal; 2017-06-04 13:44)
PROC: 30233N1 Transfusion of Nonautologous Red Blood Cells into Peripheral Vein, Percutaneous Approach (ICD-10-PCS; 2017-06-05)
DX: M87.852 Other osteonecrosis, left femur (principal); C20 Malignant neoplasm of rectum; D62 Acute posthemorrhagic anemia; M24.352 Pathological dislocation of left hip, not elsewhere classified; M16.12 Unilateral primary osteoarthritis, left hip; M25.752 Osteophyte, left hip; Z53.29 Procedure and treatment not carried out because of patient's decision for other reasons; Z92.21 Personal history of antineoplastic chemotherapy; Z92.3 Personal history of irradiation; Z99.3 Dependence on wheelchair
CPT/HCPCS: 36415; 36430; 73502; 76000; 85014; 85018; 85027; 86850; 86900; 86901; 86920; 88304; 88311; 94150; C1776; C9290; J0131; J0690; J1100; J1170; J1580; J1885; J2250; J2270; J2370; J2405; J2710; J3010; J3370; J7050; J7120; P9016

== ENCOUNTER 2018-08-04 17:02 | Inpatient (IN) ==
--- NOTE | 2018-08-04 17:53 | ED ---
HPI General Chief complaint: Abdominal Pain Stated complaint: General weakness Time Seen by Provider: 08/04/18 17:29 Source: patient, family and other Mode of arrival: ambulatory Limitations: no limitations History of Present Illness HPI narrative: 62F with PMHx chronic diarrhea and rectal cancer treated with chemotherapy and radiation in the last year. Pt is scheduled for colorectal surgery with Dr. Galicia tomorrow at 1:30PM. Pt reports fecal incontinence after consuming 3 dulcolex today at noon. Reports 20x watery, nonbloody BM in the last 24hrs, abdominal cramping, and lightheadedness. Denies falls, dizziness , headache, fever/chills, nausea/vomiting, chest pain, difficulty breathing. Related Data Home Medications Medication Instructions Recorded Confirmed cyanocobalamin (vitamin B-12) 1,000 mcg SUB-Q QMONTH 06/18/18 07/29/18 ergocalciferol (vitamin D2) 50,000 unit PO QWEEK 06/18/18 07/29/18 hydrocodone-acetaminophen 2 tab PO Q4-6H PRN 06/18/18 07/29/18 lorazepam 1 mg PO HS 06/18/18 07/29/18 valacyclovir 1,000 mg PO DAILY 06/18/18 07/29/18 rosuvastatin 20 mg PO DAILY 07/29/18 07/29/18 Allergies Allergy/AdvReac Type Severity Reaction Status Date / Time No Known Allergies Allergy Verified 07/29/18 11:56 [facility] Medical History Medical History Anal cancer (Acute) Arthritis (Acute) Back pain (Acute) GERD (gastroesophageal reflux disease) (Acute) H/O: hysterectomy (Acute) High cholesterol (Acute) Rectal cancer (Acute) Wears glasses (Acute) Wears partial dentures (Acute) Surgical History Surgical History History of ankle surgery (Acute) History of breast augmentation (Acute) History of left hip replacement (Acute) Social History Social History Substance History: No History of Abuse Second Hand Smoke Exposure: No Smoking Status: Never smoker Tobacco Type: Cigarettes How Often Do You Have a Drink Containing Alcohol: 4 or more times a week Recent Travel in [facility] within the Last 8 Weeks: No Recent Out of Country Travel within the Last 8 Weeks: No Immunization History Tetanus Immunization: <5 Years Hx Influenza Vaccine This Season: No Exam Narrative Exam Narrative: GENERAL: Well-developed well-nourished, no obvious distress SKIN: Focused skin assessment warm/dry. HEAD: Atraumatic. Normocephalic. EYES: Pupils equal and round. No scleral icterus. No injection or drainage. ENT: No nasal bleeding or discharge. Mucous membranes pink and moist. NECK: Trachea midline. No JVD. CARDIOVASCULAR: Regular rate and rhythm. No murmur appreciated. RESPIRATORY: No accessory muscle use. Clear to auscultation. Breath sounds equal bilaterally. GASTROINTESTINAL: Abdomen soft, non-tender, nondistended. Hepatic and splenic margins not palpable. MUSCULOSKELETAL: No obvious deformities. No clubbing. No cyanosis. No edema. NEUROLOGICAL: Awake and alert. No obvious cranial nerve deficits. Motor grossly within normal limits. Normal speech. PSYCHIATRIC: Appropriate mood and affect; insight and judgment normal. Course Initial Documented Vital Signs Pulse Rate 72 08/04/18 17:09 Respiratory Rate 18 08/04/18 17:09 Blood Pressure 152/86 H 08/04/18 17:09 Pulse Oximetry 98 08/04/18 17:09 Last Documented Vital Signs Pulse Rate 72 08/04/18 17:09 Respiratory Rate 18 08/04/18 17:09 Blood Pressure 152/86 H 08/04/18 17:09 Pulse Oximetry 98 08/04/18 17:09 Medical Decision Making [facility] Narrative Medical decision making narrative: Spoke with Dr. Altamirano who is on-call for Dr. Galicia, agrees the patient can be admitted to complete her prep in-house, he will admit to Dr. George, Dr. Schwartz to place orders, recommends D5 LR +20 of K at 125 cc an hour. Still awaiting electrolytes at this time. She is on the schedule for colectomy/colostomy tomorrow. Electrolytes reviewed, potassium mildly decreased. Otherwise the patient appears well, does not appear significant dehydrated her abdomen is benign. X- ray was reviewed and does not show nonobstructive bowel gas pattern. She has had some mild nausea but has not thrown up today. Medical Screen Exam Complete: Yes Emergency Medical Condition: Yes Lab Data Result diagrams: 08/04/18 18:20 08/04/18 18:20 Lab Results 08/04/18 08/04/18 Range/Units 18:20 18:20 WBC 4.0 (4.0-11.0) th/mm3 RBC 3.77 L (4.00-5.30) mil/mm3 Hgb 12.4 (11.6-15.3) gm/dL Hct 35.4 (35.0-46.0) % MCV 94.0 (80.0-100.0) fL MCH 32.8 (27.0-34.0) pg MCHC 34.9 (32.0-36.0) % RDW 13.5 (11.6-17.2) % Plt Count 163 (150-450) th/mm3 MPV 8.2 (7.0-11.0) fL Neut % (Auto) 71.2 H (16.0-70.0) % Lymph % (Auto) 13.3 (9.0-44.0) % [place] % (Auto) 12.4 H (0.0-8.0) % Eos % (Auto) 2.0 (0.0-4.0) % Baso % (Auto) 1.1 (0.0-2.0) % Neut # (Auto) 2.8 (1.8-7.7) th/mm3 Lymph # (Auto) 0.5 L (1.0-4.8) th/mm3 [place] # (Auto) 0.5 (0.0-0.9) th/mm3 Eos # (Auto) 0.1 (0.0-0.4) th/mm3 Baso # (Auto) 0.0 (0.0-0.2) th/mm3 WBC Differential . Differential Comment Auto diff final Sodium 138 (136-145) meq/L Potassium 3.1 L (3.5-5.1) meq/L Chloride 104 (98-107) meq/L Carbon Dioxide 23.2 (21.0-32.0) meq/L Anion Gap 11 (5-15) meq/L BUN 15 (7-18) mg/dL Creatinine 0.97 (0.50-1.00) mg/dL Estimated GFR 59 L (>89) mL/min Random Glucose 102 (74-106) mg/dL Calcium 8.5 (8.5-10.1) mg/dL Imaging Data Radiologist's impression: Abdomen X-Ray 08/04/18 19:11 CONCLUSION: Nonspecific, nonobstructive bowel gas pattern. Discharge Plan Discharge Disposition Patient Disposition: 30 Still Patient Discharge Condition Condition: Stable Discharge Details Diagnosis: Acute dehydration, Rectal cancer Physicians Team ED Provider: Jeffery Bender Primary Care Provider: Harris Quintana Attending Provider: Lavell Galicia Status ED Status: Admitted Patient
[2018-08-04] MEDS ORDERED: Sod Chloride 0.9% Inj 1,000 ML IV.SIG SCH (18:00)
[2018-08-04 18:54] LABS: Baso % (Auto) 1.1 % (0.0-2.0); Eos # (Auto) 0.1 th/mm3 (0.0-0.4); Hematocrit 35.4 % (35.0-46.0); Hemoglobin 12.4 gm/dL (11.6-15.3); Lymph # (Auto) 0.5 th/mm3 (1.0-4.8); Lymph % (Auto) 13.3 % (9.0-44.0); Mean Corpuscular HGB Conc 34.9 % (32.0-36.0); Mean Corpuscular Hemoglobin 32.8 pg (27.0-34.0); Mean Platelet Volume 8.2 fL (7.0-11.0); Mono # (Auto) 0.5 th/mm3 (0.0-0.9); Mono % (Auto) 12.4 % (0.0-8.0); Neut # (Auto) 2.8 th/mm3 (1.8-7.7); Neut % (Auto) 71.2 % (16.0-70.0); Platelet Count 163 th/mm3 (150-450); Red Blood Count 3.77 mil/mm3 (4.00-5.30); Red Cell Distribution Width 13.5 % (11.6-17.2)
[2018-08-04 19:08] LABS: Calcium 8.5 mg/dL (8.5-10.1); Carbon Dioxide 23.2 meq/L (21.0-32.0); Potassium 3.1 meq/L (3.5-5.1)
--- NOTE | 2018-08-04 19:44 | XR ---
EXAM DATE: 08/04/2018 7:11 PM EDT AGE/SEX: 62 years / Female INDICATIONS: Diarrhea. Patient started a pre-op flush at 12:00PM today and started having diarrhea, dizziness and cramping. CLINICAL DATA: This is the patient's initial encounter. Patient reports that signs and symptoms have been present for 1 day and indicates a pain score of 4/10. MEDICAL/SURGICAL HISTORY: None. None. COMPARISON: No prior exams available for comparison. FINDINGS: A single erect view of the abdomen demonstrates the lower lungs to be clear.No evidence of free intra peritoneal gas.The visualized bowel loops are unremarkable. Previous pelvic lymph node dissection and left hip arthroplasty. CONCLUSION: Nonspecific, nonobstructive bowel gas pattern. Electronically signed by: Lavell Dubose MD 08/04/2018 7:42 PM EDT
[2018-08-04] MEDS ORDERED: Potassium Chloride Inj 10 MEQ in Dextrose 5%/Lactated Ringer's 1,000 ML IV.CONT SCH (20:00)
[2018-08-04] MEDS ORDERED: Sodium Chloride 0.9% 2 ML Flush PRN IV.FLUSH (20:48)
[2018-08-04] MEDS ORDERED: PEG 3350/E-Lyte Soln 4000 ML Bottle PO ONE (22:26)
[2018-08-04] MEDS: POTASSIUM CHLORIDE IV.CONT SCH (22:59)
[2018-08-04] MEDS: DEXTROSE IV.CONT SCH (22:59)
[2018-08-04] MEDS: LACTATED RINGER S IV.CONT SCH (22:59)
[2018-08-04] MEDS: Sodium Chloride 0.9% 2 ML Flush BID IV.FLUSH SCH (23:00)
[2018-08-05] MEDS ORDERED: LORazepam 1 MG Tablet PO SCH (02:30)
[2018-08-05] MEDS: Acetaminophen 325 MG Tablet PO PRN ×2 (02:33→11:09)
[2018-08-05] MEDS ORDERED: Sodium Chlor 0.9% Inj 500 ML IV.CONT ONE (03:30)
[2018-08-05] MEDS ORDERED: Chlorhexidine Gluconate 2% 1 Pack (2 Cloths) TOPICAL ONE ×2 (03:30→13:55)
[2018-08-05] MEDS: LACTATED RINGER S IV.CONT SCH ×2 (05:37→09:54)
[2018-08-05] MEDS: POTASSIUM CHLORIDE IV.CONT SCH ×2 (05:37→09:54)
[2018-08-05] MEDS: DEXTROSE IV.CONT SCH ×2 (05:37→09:54)
[2018-08-05] MEDS: Sodium Chloride 0.9% 2 ML Flush BID IV.FLUSH SCH (09:00)
[2018-08-05] MEDS: valACYclovir 500 MG Tab PO SCH (09:00)
[2018-08-05] MEDS ORDERED: Metoprolol Tartrate 25 MG Tablet PO ONE (13:55)
[2018-08-05] MEDS ORDERED: Sodium Chlor 0.9% Inj 500 ML IV.SIG SCH (14:00)
[2018-08-05] MEDS ORDERED: Dextrose 5%/NaCl 0.9% Inj 1,000 ML IV.CONT SCH (14:15)
[2018-08-05] MEDS ORDERED: Glycopyrrolate Inj 1 MG/5 ML Syringe IV.PUSH ONE (14:30)
[2018-08-05] MEDS ORDERED: Phenylephrine/NS 1000 MCG/10ML Syringe IV.PUSH ONE (14:30)
[2018-08-05] MEDS ORDERED: Lidocaine PF 1% Inj 5 ML Syringe OTHER ONE (14:30)
--- NOTE | 2018-08-05 14:52 | P.PNWCN ---
Wound Care Nurse Consult Description: Patient seen for Stoma site marking for new colostomy to [facility] Communicated with: JASWANT Moise and patient Additional information: Received a call from JASWANT Moise, Doctor Iqra is requesting ostomy nurse to come here now and irineo patient for new colostomy to Q. Patient was first placed in laying position. Rectus muscle identified with patient cough. Patient then was asked to get in sitting position, bending,and finally standing. Patient was assisted back in bed to lay down. Patient was marked in LLQ area of the abdomen on the summit of the infraumbilical fat mound.
--- NOTE | 2018-08-05 15:42 | ECG ---
Date Performed: 08/05/2018 Time Performed: 04:56:08 PTAGE: 62 years EKG: Sinus rhythm INCOMPLETE RIGHT BUNDLE BRANCH BLOCK BORDERLINE ECG PREVIOUS TRACING : 07/29/2018 11.03 Since the previous tracing, no significant change noted DOCTOR: Oralia Jeong Interpretating Date/Time 08/05/2018 15:41:27
[2018-08-05] MEDS ORDERED: Sugammadex Inj 200 MG/2 ML Vial IV.PUSH ONE (15:44)
[2018-08-05] MEDS ORDERED: Potassium Chlor 40 mEq Premix 40 MEQ/100 ML PIGGYBACK IV.SIG PRN (16:56)
[2018-08-05] MEDS ORDERED: Zolpidem Tartrate 5 MG Tablet PO PRN (17:00)
[2018-08-05] MEDS ORDERED: Ketorolac Inj 30 MG/ML (IVP) Vial IV.PUSH PRN (17:00)
[2018-08-05] MEDS ORDERED: *Meperidine Inj 25 MG/ML Vial PERIprocedural Use ONLY ONE (17:10)
[2018-08-05] MEDS ORDERED: fentaNYL Citrate Inj 100 MCG/2 ML Ampul ONE (17:15)
[2018-08-05] MEDS ORDERED: Naloxone Inj 0.4 MG/ML Vial IV.PUSH PRN (17:15)
[2018-08-05] MEDS ORDERED: Morphine Inj 4 MG/ML Vial ONE (17:15)
--- NOTE | 2018-08-05 17:17 | P.OP ---
Date of procedure: 08/05/18 Procedure: Abdominal Perineal Resection with Colostomy Anesthesia: GETA Surgeon: Lavell Galicia MD Equipment Validation Specialist: Edgardo Perez Estimated blood loss (mL): 200 Operation and Findings: Anal cancer
[2018-08-05] MEDS ORDERED: *morphine SULFATE 4 MG/ML PERIprocedure ONLY ONE (17:26)
[2018-08-05] MEDS ORDERED: Morphine Inj 30 MG/30 ML PCA.VIAL PCA ONE (17:27)
[2018-08-05] MEDS ORDERED: KCL 20 mEq/D5W/LR Inj 1,000 ML ONE (17:27)
[2018-08-05] MEDS ORDERED: HYDROmorphone PF Inj 2 MG/ML Vial ONE (17:35)
[2018-08-05] MEDS: KCL 20 mEq/D5W/LR Inj 1,000 ML IV.CONT SCH ×2 (18:03→21:37)
[2018-08-05] MEDS: Morphine Inj 30 MG/30 ML PCA.VIAL PCA PRN (18:04)
[2018-08-05 18:22] LABS: Baso % (Auto) 0.4 % (0.0-2.0); Eos % (Auto) 0.7 % (0.0-4.0); Hemoglobin 9.8 gm/dL (11.6-15.3); Lymph # (Auto) 1.1 th/mm3 (1.0-4.8); Lymph % (Auto) 18.2 % (9.0-44.0); Mean Corpuscular HGB Conc 34.9 % (32.0-36.0); Mean Corpuscular Hemoglobin 32.9 pg (27.0-34.0); Mean Corpuscular Volume 94.3 fL (80.0-100.0); Mean Platelet Volume 8.5 fL (7.0-11.0); Mono # (Auto) 0.4 th/mm3 (0.0-0.9); Mono % (Auto) 6.5 % (0.0-8.0); Neut # (Auto) 4.6 th/mm3 (1.8-7.7); Neut % (Auto) 74.2 % (16.0-70.0); Platelet Count 146 th/mm3 (150-450); Red Blood Count 2.97 mil/mm3 (4.00-5.30); Red Cell Distribution Width 13.7 % (11.6-17.2); White Blood Count 6.2 th/mm3 (4.0-11.0)
--- NOTE | 2018-08-05 18:42 | MP ---
cc: Lavell Galicia MD, Abdul J MD Factor,Bipin Quintana,Harris SÁNCHEZ DATE OF OPERATION: 08/05/2018 PREOPERATIVE DIAGNOSIS: Recurrent anal carcinoma. POSTOPERATIVE DIAGNOSIS: Recurrent anal carcinoma. PROCEDURES PERFORMED: 1. Abdominoperineal resection with colostomy. 2. Partial vaginectomy. 3. Mobilization of the splenic flexure with omental flap. ANESTHESIA: General endotracheal. SURGEON: Lavell Galicia MD LAB SYSTEMS ANALYST: Edgardo Perez MD ESTIMATED BLOOD LOSS: 200 mL. OPERATING TIME: 1 hour and 50 minutes. OPERATIVE FINDINGS: This patient was diagnosed with an anal carcinoma in the left posterior and left lateral position of her anal canal about a year and a half ago. She underwent radiation therapy and chemotherapy eventually with good shrinkage of the lesion and the ulceration in the anal canal disappeared. There was still quite a bit of scarring present after the radiation and chemotherapy, but there was no sign of any residual carcinoma. The patient was evaluated every several months since that time and underwent a couple of biopsies of the scar and the mucosa. These biopsies were always negative until recently when the scarring seemed more firm and enlarged. 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 For this reason, abdominoperineal resection was recommended. Preoperative imaging including CT scans and PET scans were all negative. At surgery, exploration of the abdominal cavity revealed that the liver and gallbladder were palpably normal, as was the stomach. The patient had had a previous hysterectomy and for this reason her cecum, sigmoid colon and some of her small bowel were stuck in her pelvis and they had become radiated. The bowel was quite woody and did show chronic radiation changes throughout the sigmoid and rectum that was stuck to the pelvis as well as some of the cecum and terminal ileum. Nevertheless, the cecum and terminal ileum were mobilized up out of the upper pelvis and the sigmoid colon, descending colon, splenic flexure and full transverse colon were mobilized. The omentum was mobilized from the transverse colon to allow an omental flap into the pelvis, filling the pelvis at the end of the case. A full rectosigmoid resection was done with abdominoperineal resection, and the perineal dissection showed that the lesion was in the left lateral and a wide area of ischiorectal fat was taken around the lesion as well as approximately a 1 x 1 inch area of the left posterior vaginal wall, but not any introitus of the vagina. The vagina was repaired with interrupted 3-0 Vicryl sutures. It did not significantly narrow her vagina. There was another nodule that was firm outside the area of where the lesion was at and this was excised and sent separately as well. OPERATIVE TECHNIQUE: The patient was placed on the table in the supine position. After adequate general endotracheal anesthesia, the legs were placed in the perineal lithotomy position and the abdomen and perineum were prepped and draped in usual manner. A midline incision was made from the pubis up to above the umbilicus but not to the xiphoid. The midline was entered with the above-mentioned findings and a Trena retractor was placed. The cecum and terminal ileum were mobilized up out of the pelvis and the ascending colon was mobilized to allow mobilization of the bowel up out of the abdominal cavity. Next, our attention was turned to the sigmoid colon, which was mobilized along its peritoneal reflection. As mentioned above, it was quite woody and somewhat edematous from radiation exposure due to being adhesed in the pelvis during her radiation treatment. The descending colon and splenic flexure were likewise mobilized and the omentum was mobilized from the splenic flexure and the transverse colon, fully mobilizing the omentum for a flap at the end of the case. The retrorectal space was entered and the dissection was taken down posteriorly. The lateral pelvic peritoneum was incised bilaterally. The left and right ureters were identified and protected at all times. Dissection was taken down the left pelvic sidewall and the anterior cul-de-sac was identified and a sponge stick was placed in the vagina to identify the posterior vaginal wall. The dissection was taken down the cul-de-sac posterior to the upper vagina and anterior to the rectum all the way to the pelvic floor. The dissection was taken around laterally and posteriorly all the way to the pelvic floor as well. Next, the superior hemorrhoidal vessels were doubly clamped, cut and doubly ligated with 0 Vicryl ligatures and the inferior mesenteric vein was likewise clamped, cut and ligated. The mesocolon of the sigmoid was clamped, cut and ligated and the sigmoid colon was divided with an Ethicon OLI 55 stapling device in a soft section where there were no radiation changes. Next, the perineal dissection was done by Dr. Perez, elliptically making an incision around the anus and entering the ischiorectal fossa. It should be mentioned that while dissecting down the left pelvic sidewall internally, a fracture was made just above the tumor for approximately 1 cm in size. No spillage of stool or tumor seemed to emanate from this fractured rectum. Again, Dr. Perez dissected up the ischiorectal fossa and then entered the pelvis posteriorly above the coccyx and then the levator muscles on the right side were divided with electrocautery and sharp dissection. The left side was dissected widely, taking an excess of fat around where the tumor was and a 1 inch disk of left posterior vaginal wall. Once this was done, the left levator was fully divided and the specimen was handed down from above and then anterior dissection off of the vagina was completed. Once this was done, the pelvis was irrigated thoroughly with 2 liters of saline solution and the irrigation was drained out of the perineal wound. Hemostasis was maintained throughout with electrocautery and ligature. Dr. Perez then repaired the vagina with interrupted 3-0 Vicryl sutures and then the perineal wound was closed in layers, approximating the fat in several layers with interrupted 0 Vicryl sutures and the skin was closed with interrupted 0 Vicryl subcuticular sutures. Once this was done, we completed the stoma site in the abdomen at the previously marked spot, taking a disk of skin and subcutaneous fat and then the rectus muscle was divided vertically and the stoma and some of the mesentery were brought up through the abdominal wall. Next, the bowels were placed in the abdominal cavity in an rough rounder machine manner. A flat Anil drain was placed in the pelvis and brought out through a separate stab wound in the right lower quadrant. The abdominal cavity had been previously irrigated with 2 other liters of saline solution and hemostasis was maintained in all parts of the abdominal cavity. There was some small amount of oozing from posterior to the tail of the pancreas and after fulgurating this vigorously, a piece of clotting agent was placed there with good hemostasis. Next, the omentum was placed down the left colic gutter and the bulky omentum fit into the pelvis and filled the pelvis completely. The cecum was laid back into position in the right lower quadrant and the small bowel was replaced in the abdominal cavity in an rough rounder machine manner. As mentioned, the stoma was brought out through the previously made stoma site and the abdominal cavity was then closed in a single layer using a double-stranded #1 PDS in a single running manner. Once this was done, the subcutaneous tissue was irrigated thoroughly with 2 liters of saline solution and aspirated dry. The skin was closed with running 3-0 Vicryl subcuticular suture. The colostomy was then matured with interrupted 3-0 Vicryl sutures and a 57 mm appliance was placed on the colostomy. Dressings were applied on the abdominal wound and around the drain as well as the perineum and fishnet panties. Sponge, needle and instrument counts were reported as correct. Estimated blood loss was 200 mL. Operating time was 1 hour and 50 minutes. The patient tolerated the procedure well and left the operating room in good condition. MD JERICHO Posada/pipe , 05:30 PM , 05:46 PM
[2018-08-05 18:43] LABS: Calcium 7.2 mg/dL (8.5-10.1); Carbon Dioxide 23.8 meq/L (21.0-32.0); Potassium 3.4 meq/L (3.5-5.1)
[2018-08-05 19:02] LABS: Total Protein 4.9 g/dL (6.4-8.2)
[2018-08-05] MEDS: ceFAZolin 2 GM Premix Inj 2 GM/50 ML PIGGYBACK IV.SIG SCH (21:03)
[2018-08-05] MEDS: LORazepam 1 MG Tablet PO SCH (21:05)
[2018-08-06] MEDS: KCL 20 mEq/D5W/LR Inj 1,000 ML IV.CONT SCH ×4 (01:29→17:48)
[2018-08-06 04:17] LABS: Hematocrit 25.1 % (35.0-46.0); Hemoglobin 8.7 gm/dL (11.6-15.3); Lymph # (Auto) 0.7 th/mm3 (1.0-4.8); Lymph % (Auto) 6.9 % (9.0-44.0); Mean Corpuscular HGB Conc 34.8 % (32.0-36.0); Mean Corpuscular Volume 94.8 fL (80.0-100.0); Mean Platelet Volume 8.2 fL (7.0-11.0); Mono # (Auto) 0.8 th/mm3 (0.0-0.9); Mono % (Auto) 8.3 % (0.0-8.0); Neut # (Auto) 8.1 th/mm3 (1.8-7.7); Neut % (Auto) 84.8 % (16.0-70.0); Platelet Count 130 th/mm3 (150-450); Red Blood Count 2.65 mil/mm3 (4.00-5.30); Red Cell Distribution Width 13.7 % (11.6-17.2); White Blood Count 9.6 th/mm3 (4.0-11.0)
[2018-08-06] MEDS: PCA - Total MG Morphine Delevered per Shift MISCELLANE SCH ×4 (04:24→23:04)
[2018-08-06 04:44] LABS: Calcium 6.9 mg/dL (8.5-10.1); Carbon Dioxide 24.2 meq/L (21.0-32.0)
[2018-08-06 05:02] LABS: Total Protein 4.9 g/dL (6.4-8.2)
[2018-08-06] MEDS: ceFAZolin 2 GM Premix Inj 2 GM/50 ML PIGGYBACK IV.SIG SCH ×2 (05:25→13:25)
--- NOTE | 2018-08-06 07:12 | P.PNCS ---
Subjective Colorectal Surgery Post Op Day #: 1 Interval history: No N or V. Pain controlled. Bloody drainage from GARRISON Objective Result Diagrams: 08/06/18 03:46 08/06/18 03:46 Objective Remarks: Abd: flat,dressing dry,bloody drainage GARRISON,stoma pink Assessment and Plan - Plan Will decrease IVs Recheck H&H Transfuse if needed OOB
[2018-08-06] MEDS: valACYclovir 500 MG Tab PO SCH (08:26)
[2018-08-06] MEDS: Pantoprazole Inj 40 MG Vial IV.PUSH SCH (08:26)
[2018-08-06] MEDS: Morphine Inj 30 MG/30 ML PCA.VIAL PCA PRN (10:57)
[2018-08-06] MEDS: POTASSIUM CHLORIDE IV.CONT SCH (12:02)
[2018-08-06] MEDS: DEXTROSE IV.CONT SCH (12:02)
[2018-08-06] MEDS: LACTATED RINGER S IV.CONT SCH (12:02)
[2018-08-06 12:32] LABS: Hematocrit 21.9 % (35.0-46.0); Hemoglobin 7.4 gm/dL (11.6-15.3)
--- NOTE | 2018-08-06 18:11 | P.PNWCN ---
Wound Care Nurse Consult Description: Received new ostomy teaching, ostomy management consult from Doctor Galicia Communicated with: JASWANT Quiroz, patient and family Recommendation: Please change ostomy appliance every 5 to 7 days or PRN if leaking. Empty pouch when 1/3 to 1/2 full Release gas from pouch PRN. monitor stoma for output,and appearance Bowel Diversion Stoma - Bowel Stoma Left Lower Abdomen Stoma Edema: Yes Stoma Diameter: 32 (~32mm) Stoma Appearance: Round Collection Device: Two-piece Wafer Size: 2 1/4 Moldable Gayatri-Stomal Surrounding Tissue Sensation Description: No Symptoms - Additional Information Additional Information: Patient seen on [facility] for new ostomy teaching. Reviewed releasing gas from pouch , how often to change ostomy appliance. appliance types for colostomies, surgery , and stoma appearance. Patient is very tired at this time. Teaching was done mostly with family members in room. Stoma was assessed, and is red in color and protruding minimally into 2 1/4 two piece colostomy appliance. Brown/ sanguinous output is noted in pouch about 1/4 full.
[2018-08-06] MEDS: LORazepam 1 MG Tablet PO SCH (20:01)
[2018-08-07] MEDS: KCL 20 mEq/D5W/LR Inj 1,000 ML IV.CONT SCH ×4 (01:46→22:36)
[2018-08-07] MEDS: Morphine Inj 30 MG/30 ML PCA.VIAL PCA PRN (05:42)
[2018-08-07] MEDS: PCA - Total MG Morphine Delevered per Shift MISCELLANE SCH ×3 (06:13→22:36)
[2018-08-07 06:55] LABS: Baso % (Auto) 0.4 % (0.0-2.0); Eos % (Auto) 0.3 % (0.0-4.0); Hematocrit 21.2 % (35.0-46.0); Hemoglobin 7.2 gm/dL (11.6-15.3); Lymph # (Auto) 0.8 th/mm3 (1.0-4.8); Lymph % (Auto) 11.8 % (9.0-44.0); Mean Corpuscular Hemoglobin 32.9 pg (27.0-34.0); Mean Corpuscular Volume 96.9 fL (80.0-100.0); Mean Platelet Volume 8.4 fL (7.0-11.0); Mono # (Auto) 0.5 th/mm3 (0.0-0.9); Mono % (Auto) 7.1 % (0.0-8.0); Neut # (Auto) 5.3 th/mm3 (1.8-7.7); Neut % (Auto) 80.4 % (16.0-70.0); Platelet Count 130 th/mm3 (150-450); Red Blood Count 2.19 mil/mm3 (4.00-5.30); Red Cell Distribution Width 13.7 % (11.6-17.2); White Blood Count 6.6 th/mm3 (4.0-11.0)
[2018-08-07 07:44] LABS: Calcium 7.7 mg/dL (8.5-10.1); Carbon Dioxide 25.1 meq/L (21.0-32.0); Potassium 3.9 meq/L (3.5-5.1)
[2018-08-07] MEDS: Pantoprazole Inj 40 MG Vial IV.PUSH SCH (08:30)
[2018-08-07] MEDS: valACYclovir 500 MG Tab PO SCH (08:31)
--- NOTE | 2018-08-07 11:15 | P.PN ---
Subjective Interval history: POD #2 s/p APR comfortable Physical Exam Vital signs: Vital Signs 08/06/18 12:00 08/06/18 13:00 08/06/18 14:00 Temperature Pulse Rate 84 87 86 Respiratory Rate Blood Pressure Pulse Oximetry 08/06/18 15:00 08/06/18 16:00 08/06/18 17:00 Temperature 97.6 F Pulse Rate 78 88 82 Respiratory Rate 16 Blood Pressure 112/59 L Pulse Oximetry 97 08/06/18 18:00 08/06/18 19:00 08/06/18 20:00 Temperature Pulse Rate 82 91 H 96 H Respiratory Rate 18 Blood Pressure 118/68 Pulse Oximetry 98 98 08/06/18 20:28 08/06/18 21:00 08/06/18 22:00 Temperature Pulse Rate 94 H 100 H Respiratory Rate Blood Pressure Pulse Oximetry 96 08/06/18 23:00 08/07/18 00:00 08/07/18 01:00 Temperature 98.5 F Pulse Rate 102 H 106 H 106 H Respiratory Rate 18 Blood Pressure 148/73 H Pulse Oximetry 96 08/07/18 02:00 08/07/18 03:00 08/07/18 04:00 Temperature 98.7 F Pulse Rate 106 H 108 H 106 H Respiratory Rate 18 Blood Pressure 147/78 H Pulse Oximetry 95 08/07/18 05:00 08/07/18 06:00 08/07/18 07:00 Temperature 97.7 F Pulse Rate 108 H 107 H 102 H Respiratory Rate 16 Blood Pressure 154/87 H Pulse Oximetry 96 08/07/18 09:14 08/07/18 11:00 Temperature 98.2 F Pulse Rate 103 H Respiratory Rate 16 Blood Pressure 154/87 H Pulse Oximetry 94 L 99 Intake & Output 08/06/18 08/07/18 08/07/18 18:59 06:59 18:59 Intake Total 3565 / 3565 1240 / 1240 400 / 400 Output Total 770 / 770 1050 / 1050 Balance 2795 / 2795 190 / 190 400 / 400 Weight 64.5 kg Intake: IV 3315 / 3315 1000 / 1000 400 / 400 D5W/LR + KCL 20 mEq Inj 1,000 1000 / 1000 1000 / 1000 400 / 400 ML @ 75 mls/hr IV.CONT .[id number] [facility] Rx#:[id number] LR 1000 mL Inj 1,000 ML @ 30 0 / 0 mls/hr IV.SIG .Q24H [facility] Rx#: [id number] Ancef 2 GM Premix Inj 2 gm In 100 / 100 50 ml @ 100 mls/hr IV.SIG Q8H [facility] Rx#:[id number] Ancef Inj 1,000 MG In NS Inj 100 / 100 100 ML @ 200 mls/hr IV.SIG [facility] Rx#:[id number] Flagyl 500 MG Inj 100 ML @ 100 100 / 100 mls/hr IV.SIG Q8H [facility] Rx#: [id number] Oral 250 / 250 240 / 240 Output: Urine Amount (Catheter) 600 / 600 900 / 900 Indwelling Urethral Catheter 600 / 600 900 / 900 Wound Drainage 170 / 170 150 / 150 # 1 Abdomen 75 / 75 Right Lower Abdomen 170 / 170 75 / 75 Other: Date of Last Bowel Movement 08/06/18 - Routine Abdominal Exam Comments: Abdomen soft, nondistended, tender Wound clean, stoma pink/functional GARRISON serosanguinous - Urinary Catheter Management Indwelling Urethral Catheter Cath placed during this visit: yes Reason for continuing: Hourly intake/output Insertion date: 08/05/18 Insertion time: 14:27 Results - Labs CBC & Chem 7: 08/07/18 05:49 08/07/18 05:49 Laboratory Results - last 24 hr 08/06/18 08/07/18 08/07/18 12:21 05:49 05:49 WBC 6.6 RBC 2.19 L Hgb 7.4 L 7.2 L Hct 21.9 L 21.2 L MCV 96.9 MCH 32.9 MCHC 34.0 RDW 13.7 Plt Count 130 L MPV 8.4 Neut % (Auto) 80.4 H Lymph % (Auto) 11.8 [place] % (Auto) 7.1 Eos % (Auto) 0.3 Baso % (Auto) 0.4 Neut # (Auto) 5.3 Lymph # (Auto) 0.8 L [place] # (Auto) 0.5 Eos # (Auto) 0.0 Baso # (Auto) 0.0 WBC Differential . Differential Comment Auto diff final Sodium 140 Potassium 3.9 Chloride 105 Carbon Dioxide 25.1 Anion Gap 10 BUN 13 Creatinine 0.91 Estimated GFR 63 L Random Glucose 120 H D Calcium 7.7 L D Assessment and Plan - Assessment (1) Rectal cancer Code(s): C20 - Malignant neoplasm of rectum Status: Acute Plan: Advance diet d/c yan i unit PRBC d/c telemetry
[2018-08-07] MEDS ORDERED: Sodium Chlor 0.9% Inj 250 ML IV.SIG SCH (12:00)
[2018-08-07] MEDS: LORazepam 1 MG Tablet PO SCH (20:43)
[2018-08-08 04:29] LABS: Baso % (Auto) 0.2 % (0.0-2.0); Eos # (Auto) 0.1 th/mm3 (0.0-0.4); Eos % (Auto) 1.9 % (0.0-4.0); Hematocrit 26.4 % (35.0-46.0); Lymph % (Auto) 13.4 % (9.0-44.0); Mean Corpuscular HGB Conc 34.1 % (32.0-36.0); Mean Corpuscular Hemoglobin 31.9 pg (27.0-34.0); Mean Corpuscular Volume 93.4 fL (80.0-100.0); Mean Platelet Volume 8.9 fL (7.0-11.0); Mono # (Auto) 0.4 th/mm3 (0.0-0.9); Mono % (Auto) 5.6 % (0.0-8.0); Neut # (Auto) 6.1 th/mm3 (1.8-7.7); Neut % (Auto) 78.9 % (16.0-70.0); Platelet Count 140 th/mm3 (150-450); Red Blood Count 2.82 mil/mm3 (4.00-5.30); White Blood Count 7.7 th/mm3 (4.0-11.0)
[2018-08-08 04:34] LABS: Calcium 7.5 mg/dL (8.5-10.1); Carbon Dioxide 25.3 meq/L (21.0-32.0); Potassium 3.3 meq/L (3.5-5.1)
[2018-08-08] MEDS: PCA - Total MG Morphine Delevered per Shift MISCELLANE SCH (06:06)
[2018-08-08] MEDS: valACYclovir 500 MG Tab PO SCH (08:15)
[2018-08-08] MEDS: Pantoprazole Inj 40 MG Vial IV.PUSH SCH (08:30)
[2018-08-08] MEDS: KCL 20 mEq/D5W/LR Inj 1,000 ML IV.CONT SCH (11:28)
--- NOTE | 2018-08-08 11:48 | P.PN ---
Subjective Interval history: POD#2 s/p APR comfortable Physical Exam Vital signs: Vital Signs 08/07/18 15:00 08/07/18 15:31 08/07/18 16:00 Temperature 98.0 F 98.4 F 98.3 F Pulse Rate 106 H 102 H 100 H Respiratory Rate 16 14 16 Blood Pressure 143/83 H 161/81 H 161/82 H Pulse Oximetry 95 98 99 08/07/18 16:30 08/07/18 18:18 08/07/18 19:00 Temperature 98.3 F 98.4 F 98.3 F Pulse Rate 98 H 102 H 99 H Respiratory Rate 16 16 18 Blood Pressure 153/79 H 164/90 H 169/91 H Pulse Oximetry 97 99 99 08/07/18 20:30 08/07/18 23:00 08/08/18 03:00 Temperature 98.7 F 98.7 F Pulse Rate 99 H 92 H Respiratory Rate 20 20 Blood Pressure 159/89 H 170/88 H Pulse Oximetry 96 96 98 08/08/18 07:00 08/08/18 08:29 Temperature 98.3 F Pulse Rate 95 H Respiratory Rate 16 Blood Pressure 155/93 H Pulse Oximetry 97 95 Intake & Output 08/07/18 08/08/18 08/08/18 18:59 06:59 18:59 Intake Total 1880 / 1880 190 / 190 1250 / 1250 Output Total 3370 / 3370 1275 / 1275 350 / 350 Balance -1490 / -1490 -1085 / -1085 900 / 900 Weight 63.5 kg Intake: IV 1400 / 1400 1250 / 1250 D5W/LR + KCL 20 mEq Inj 1,000 1400 / 1400 1000 / 1000 ML @ 75 mls/hr IV.CONT .[id number] [facility] Rx#:[id number] NS Inj 250 ML @ 15 mls/hr IV. 250 / 250 SIG ONCE [facility] Rx#:[id number] Oral 480 / 480 190 / 190 Intake (Blood Product) Amt 0 / 0 Rbc As-3 Leukoreduced Unit 0 / 0 [id number] Output: Urine 1200 / 1200 350 / 350 Urine Amount (Catheter) 3250 / 3250 Indwelling Urethral Catheter 3250 / 3250 Stool Amount (Stoma) 50 / 50 Left Lower Abdomen 50 / 50 Wound Drainage 70 / 70 75 / 75 Right Lower Abdomen 70 / 70 75 / 75 Other: Date of Last Bowel Movement 08/07/18 - Routine Abdominal Exam Comments: Abdomen soft, nondistended, tender Wounds clean, stoma pink Perineal wound clean - Urinary Catheter Management Indwelling Urethral Catheter Cath placed during this visit: yes Reason for continuing: Hourly intake/output Insertion date: 08/05/18 Insertion time: 14:27 Results - Labs CBC & Chem 7: 08/08/18 03:32 08/08/18 03:32 Laboratory Results - last 24 hr 08/07/18 08/08/18 08/08/18 12:37 03:32 03:32 WBC 7.7 RBC 2.82 L Hgb 9.0 L Hct 26.4 L MCV 93.4 D MCH 31.9 MCHC 34.1 RDW 14.0 Plt Count 140 L MPV 8.9 Neut % (Auto) 78.9 H Lymph % (Auto) 13.4 [place] % (Auto) 5.6 Eos % (Auto) 1.9 Baso % (Auto) 0.2 Neut # (Auto) 6.1 Lymph # (Auto) 1.0 [place] # (Auto) 0.4 Eos # (Auto) 0.1 Baso # (Auto) 0.0 WBC Differential . Differential Comment Auto diff final Hematology Comments Sodium 136 Potassium 3.3 L Chloride 101 Carbon Dioxide 25.3 Anion Gap 10 BUN 9 Creatinine 0.79 Estimated GFR 74 L Random Glucose 96 Calcium 7.5 L Blood Type A Negative Antibody Screen Negative MTS Gel Crossmatch See Detail Assessment and Plan - Assessment (1) Rectal cancer Code(s): C20 - Malignant neoplasm of rectum Status: Acute Plan: Decrease IVF Transfer to 7 Home soon
[2018-08-08] MEDS: Acetaminophen 325 MG Tablet PO PRN (19:30)
[2018-08-08] MEDS: LORazepam 1 MG Tablet PO SCH (20:51)
[2018-08-09] MEDS: KCL 20 mEq/D5W/LR Inj 1,000 ML IV.CONT SCH ×2 (00:12→23:07)
[2018-08-09] MEDS: Pantoprazole Inj 40 MG Vial IV.PUSH SCH (08:09)
[2018-08-09] MEDS: valACYclovir 500 MG Tab PO SCH (08:09)
[2018-08-09 11:37] LABS: Hematocrit 26.5 % (35.0-46.0); Hemoglobin 9.2 gm/dL (11.6-15.3)
--- NOTE | 2018-08-09 11:48 | P.DCO ---
- Diagnosis (1) Recurrent anal squamous cell carcinoma Status: Acute - Home Health Nursing Order: Medical education, Signs/symptoms of disease process, Wound care and dressing changes Instructions: New colostomy teaching and supplies - Case Management Consult Yes - Certification I have seen patient Kimberly Valadez on 08/09/18. My clinical findings support the need for the requested home health care services because: Limited mobility due to disease progression, Deconditioned with increased weakness, Limited ability to care for self, High risk of falls I certify that my clinical findings support that this patient is homebound because: Post-op weakness, Unsteady gait/balance, Unable to use public transportation
--- NOTE | 2018-08-09 12:01 | P.PNCS ---
Subjective Colorectal Surgery Post Op Day #: 4 Interval history: Nausea today. No vomiting. Stooling Objective Result Diagrams: 08/09/18 11:28 08/08/18 03:32 Objective Remarks: Abd: flat, wound clean, Drain serous. Removed by me. Assessment and Plan - Assessment (1) Recurrent anal squamous cell carcinoma Code(s): C21.0 - Malignant neoplasm of anus, unspecified Status: Acute - Plan OOB Continue Regular diet Recheck H&H Probable D/C tomorrow
--- NOTE | 2018-08-09 14:03 | P.PNWCN ---
Wound Care Nurse Consult Description: Patient seen for follow up of Ostomy education and stoma assessment Communicated with: RN Gabriella, patient and patient's spouse Recommendation: Please change ostomy appliance every 5 to 7 days or PRN if leaking. Empty pouch when 1/3 to 1/2 full Release gas from pouch PRN. monitor stoma for output,and appearance Bowel Diversion Stoma - Bowel Stoma Left Lower Abdomen Stoma Edema: Yes Stoma Diameter: 32 (mm) Stoma Appearance: Beefy Red, Protruding, Round Loop Supporting Alireza: No Collection Device: Two-piece Drainage Description: Liquid, Brown Wafer Size: 2 1/4 Moldable Stoma Care: Pouch and Wafer Changed Gayatri-Stomal Skin Appearance: Erythema (Blanching) Gayatri-Stomal Surrounding Tissue Sensation Description: No Symptoms - Additional Information Additional Information: Patient seen for follow up teaching and stoma assessment of Colostomy to [facility]. Patient is laying in bed and is Alert and ready for teaching. Reviewed type of Colostomy surgery with patient, Stoma assessment, types of ostomy appliances and changing appliance. Assessed some leaking from two piece ostomy wafer in place. Changed ostomy appliance 2 piece 2 1/4 moldable.Stoma presents red in color and measures 1 1/4. Peristomal skin was cleansed with water and washcloth and patted dry. Peristomal skin is noted with erythema fro 4 to 8 o'clock. Applied skin barrier film to peristomal skin. Flaca seal was then applied between 4 and 8 o'clock. Two piece 2 1/4 colostomy appliance was then applied in place.
[2018-08-09] MEDS: LORazepam 1 MG Tablet PO SCH (21:09)
[2018-08-10] MEDS: valACYclovir 500 MG Tab PO SCH (08:56)
[2018-08-10] MEDS: Pantoprazole Inj 40 MG Vial IV.PUSH SCH (08:57)
[2018-08-10 09:12] VITALS: RESP 18; O2SAT 98
[2018-08-10 12:29] VITALS: BP 152/94; PULSE 83; TEMP 98.2
--- NOTE | 2018-08-11 12:02 | P.PNWCN ---
Wound Care Nurse Consult Description: Late entry from 08/10/2018:Patient seen for follow up of Ostomy education and stoma assessment Communicated with: Late entry from 08/10/2018: With patient and JASWANT jacobs Recommendation: Please change ostomy appliance every 5 to 7 days or PRN if leaking. Empty pouch when 1/3 to 1/2 full Release gas from pouch PRN. monitor stoma for output,and appearance Bowel Diversion Stoma - Bowel Stoma Left Lower Abdomen Stoma Diameter: 32 (mm) Stoma Appearance: Beefy Red (Late entry from 08/10/2018), Protruding, Round Collection Device: Two-piece ( Late entry08/10/2018) Drainage Description: Brown (Late entry from 08/10/2018), Seedy (Late entry from 08/10/2018) Wafer Size: 2 1/4 Moldable (late entry from 08/10/2018) Gayatri-Stomal Surrounding Tissue Sensation Description: No Symptoms - Additional Information Additional Information: Late entry from 08/10/2018:Patient seen for follow up teaching and stoma assessment of Colostomy to [facility]. Patient is getting up to the bathroom with minimal assist and complaining of sero-sanguinous leaking from incision on the perineal area.Patient is complaining dizziness and lightheadedness. Vital signs are as follows T 98.1, P 81, BP166/96, O2sat 98%. Patient is anxious,reassured patient that ostomy appliance is intact, incision to midline abdomen is intact and incision to perineal area is intact with minimal sero-sanguinous drainage. New ultrasorb pad was placed under patient. Instructed patient to get up out of bed with assistance and to get up slowly to reduce dizziness and lightheadedness. Olive reports emptying pouch this morning without difficulty. Vital signs communicated with JASWANT jacobs.
== END 2018-08-10 14:21 | disposition home health service (06) ==
LOC: NEPD 17:02 → NEDA 19:06 → N06 21:03 → HCIS 08-05 17:11 → HCPC 08-05 18:48 → N07 08-09 13:58
PROVIDERS: ADMIT Colon & Rectal Surgery; ATTEND Colon & Rectal Surgery